=== PATIENT | female | born 1990 | race Caucasian/White ===

== ENCOUNTER 2018-06-04 13:25 | Inpatient (IN) | payer OTHER ==
--- NOTE | 2018-06-04 14:27 | ED ---
General Adult HPI - General Chief complaint: Skin/Abscess/Foreign Body Stated complaint: lt leg infection Time Seen by Provider: 06/04/18 14:08 Source: patient, RN notes reviewed Mode of arrival: wheelchair Limitations: no limitations - History of Present Illness Initial comments: Patient is a 27-year-old female who presents the emergency department with complaints of redness and pain on her left lower extremity that started 2 days ago. She saw her primary doctor yesterday and was given a shot of Rocephin and started on Bactrim; she took 2 doses of the Bactrim. The redness has extended beyond the marked perimeter that her doctor sunil yesterday so she was told to come to the ER. She denies any fevers at home or discharge from the infection. She is unsure what caused the infection. Patient reports that she is up to date on tetanus. She thinks her left foot feels somewhat numb. Patient denies any recent fever, chills, shortness of breath, chest pain, back pain, abdominal pain, vomiting, runny nose, sore throat, tingling, constipation or diarrhea, headaches or visual changes, or any other complaints. - Related Data Home Medications Medication Instructions Recorded Confirmed Mge-Gril-Ndrby Acid 1 tab PO DAILY 08/28/14 10/28/15 [-U Capsule] Omeprazole [PriLOSEC] 20 mg PO AC-BID 06/10/15 10/28/15 Fluticasone Propionate [Flovent 2 puff INHALATION DAILY PRN 10/21/15 10/28/15 Diskus] Previous Rx's Medication Instructions Recorded Acetaminophen-Codeine 300-30mg 1 tab PO Q4H PRN #30 tablet 10/28/15 [Tylenol #3] Allergies Allergy/AdvReac Type Severity Reaction Status Date / Time latex Allergy Rash/Hives Verified 06/04/18 13:47 Review of Systems ROS Statement: Those systems with pertinent positive or pertinent negative responses have been documented in the HPI. ROS Other: All systems not noted in ROS Statement are negative. Past Medical History Past Medical History: Asthma, GERD/Reflux Additional Past Medical History / Comment(s): hard of hearing left ear. History of Any Multi-Drug Resistant Organisms: None Reported Past Surgical History: Bariatric Surgery, Cholecystectomy Additional Past Surgical History / Comment(s): GASTRECTOMY WITH SLEEVE Past Psychological History: Anxiety Smoking Status: Current every day smoker Past Alcohol Use History: Rare Past Drug Use History: None Reported - Past Family History Father Family Medical History: Fibromyalgia General Exam Limitations: no limitations General appearance: alert, in no apparent distress Head exam: Present: atraumatic, normocephalic Eye exam: Present: normal appearance Respiratory exam: Present: normal lung sounds bilaterally Cardiovascular Exam: Present: regular rate, normal rhythm Extremities exam: Present: full ROM, tenderness (Left LE tenderness to palpation.), normal capillary refill, other (Left LE below knee: 11x10 cm area of erythema and warmth. 2x2 cm area of induration. No fluctuance. Tiny scab in the middle without drainage. Full sensation of bilateral feet.) Neurological exam: Present: alert, oriented X3 Psychiatric exam: Present: normal affect, normal mood Course Vital Signs 06/04/18 06/04/18 13:48 17:43 Temperature 98.4 F 97.5 F L Pulse Rate 84 71 Respiratory 16 16 Rate Blood Pressure 111/74 111/57 O2 Sat by Pulse 100 100 Oximetry Medical Decision Making - Medical Decision Making Patient is afebrile here. No fluctuance or drainage over the infection site. This appears to be cellulitis. Venous Plasma Lactic Acid was WNL at 0.7. WBC is WNL at 8.1. Patient will be admitted for IV antibiotics. Case discussed in detail with attending physician Dr. Chavez. - Lab Data Result diagrams: 06/04/18 15:37 06/04/18 15:31 Lab Results 06/04/18 06/04/18 06/04/18 Range/Units 15:31 15:37 15:37 WBC 8.1 (3.8-10.6) k/uL RBC 4.20 (3.80-5.40) m/uL Hgb 10.7 L (11.4-16.0) gm/dL Hct 33.5 L (34.0-46.0) % MCV 79.6 L (80.0-100.0) fL MCH 25.5 (25.0-35.0) pg MCHC 32.0 (31.0-37.0) g/dL RDW 14.7 (11.5-15.5) % Plt Count 319 (150-450) k/uL Neutrophils % 59 % Lymphocytes % 25 % Monocytes % 5 % Eosinophils % 9 % Basophils % 1 % Neutrophils # 4.7 (1.3-7.7) k/uL Lymphocytes # 2.1 (1.0-4.8) k/uL Monocytes # 0.4 (0-1.0) k/uL Eosinophils # 0.8 H (0-0.7) k/uL Basophils # 0.1 (0-0.2) k/uL Sodium 139 (137-145) mmol/L Potassium 4.3 (3.5-5.1) mmol/L Chloride 106 (98-107) mmol/L Carbon Dioxide 24 (22-30) mmol/L Anion Gap 9 mmol/L BUN 16 (7-17) mg/dL Creatinine 0.82 (0.52-1.04) mg/dL Est GFR (CKD-EPI)AfAm >90 (>60 ml/min/1.73 sqM) Est GFR (CKD-EPI)NonAf >90 (>60 ml/min/1.73 sqM) Glucose 114 H (74-99) mg/dL Plasma Lactic Acid Ramsey 0.7 (0.7-2.0) mmol/L Calcium 8.8 (8.4-10.2) mg/dL Total Bilirubin 0.3 (0.2-1.3) mg/dL AST 24 (14-36) U/L ALT 15 (9-52) U/L Alkaline Phosphatase 56 (38-126) U/L Total Protein 7.7 (6.3-8.2) g/dL Albumin 4.0 (3.5-5.0) g/dL Disposition Clinical Impression: Cellulitis, Failure of outpatient treatment Disposition: ADMITTED IP TO THIS HOSP Condition: Good Is patient prescribed a controlled substance at d/c from ED?: No Referrals: Samuel Novoa III, MD [Primary Care Provider] - 1-2 days
[2018-06-04] MEDS ORDERED: ACETAMINOPHEN TAB 500 MG TAB PO STA (14:44)
[2018-06-04 16:27] LABS: Basophils # (A) 0.1 k/uL (0-0.2); Basophils % (A) 1 %; Eosinophils # (A) 0.8 k/uL (0-0.7); Eosinophils % (A) 9 %; HCT 33.5 % (34.0-46.0); HGB 10.7 gm/dL (11.4-16.0); Lymphocytes # (A) 2.1 k/uL (1.0-4.8); Lymphocytes % (A) 25 %; MCH 25.5 pg (25.0-35.0); MCV 79.6 fL (80.0-100.0); Mean Platelet Volume 7.4; Monocytes # (A) 0.4 k/uL (0-1.0); Monocytes % (A) 5 %; Neutrophils # (A) 4.7 k/uL (1.3-7.7); Neutrophils % (A) 59 %; Platelet Count 319 k/uL (150-450); RDW 14.7 % (11.5-15.5); WBC 8.1 k/uL (3.8-10.6)
[2018-06-04] MEDS ORDERED: IBUPROFEN 400 MG TAB PO PRN (17:02)
[2018-06-04] MEDS ORDERED: ACETAMINOPHEN TAB 325 MG TAB PO PRN (17:02)
[2018-06-04] MEDS ORDERED: ONDANSETRON 4 MG/2 ML VIAL IVP PRN (17:02)
[2018-06-04] MEDS ORDERED: NALOXONE 0.4 MG/ML 1 ML VIAL IV PRN (17:02)
[2018-06-04] MEDS ORDERED: VANCOMYCIN IV PER PHARMACY 1 EACH MISC MISCELLANE PRN (17:07)
[2018-06-04] MEDS ORDERED: VANCOMYCIN 1,750 MG in SODIUM CHLORIDE 0.9% 500 ML 500 ML IVPB STA (17:14)
[2018-06-04 17:20] LABS: ALT 15 U/L (9-52); AST 24 U/L (14-36); Alkaline Phosphatase 56 U/L (38-126); Anion Gap 9 mmol/L; Blood Urea Nitrogen 16 mg/dL (7-17); Calcium 8.8 mg/dL (8.4-10.2); Carbon Dioxide 24 mmol/L (22-30); Chloride 106 mmol/L (98-107); Glucose 114 mg/dL (74-99); Potassium 4.3 mmol/L (3.5-5.1); Sodium 139 mmol/L (137-145); Total Bilirubin 0.3 mg/dL (0.2-1.3); Total Protein 7.7 g/dL (6.3-8.2)
[2018-06-04] MEDS: SODIUM CHLORIDE 0.9% 1,000 ML IV SCH (17:37)
[2018-06-04] MEDS ORDERED: SERTRALINE 100 MG TAB PO SCH (21:15)
[2018-06-04] MEDS: FAMOTIDINE 20 MG TAB PO SCH ×2 (21:49→21:50)
[2018-06-04] MEDS: LORATADINE 10 MG TAB PO SCH (21:50)
[2018-06-05] MEDS: VANCOMYCIN 1,250 MG in SODIUM CHLORIDE 0.9% 250 ML IVPB SCH ×2 (01:55→10:19)
[2018-06-05] MEDS: SODIUM CHLORIDE 0.9% 1,000 ML IV SCH ×2 (03:51→14:23)
[2018-06-05 06:39] VITALS: BP 95/45; RESP 16; TEMP 98.7
[2018-06-05] MEDS: LORATADINE 10 MG TAB PO SCH (08:02)
[2018-06-05 08:16] LABS: Basophils # (A) 0.1 k/uL (0-0.2); Basophils % (A) 1 %; Eosinophils # (A) 0.8 k/uL (0-0.7); Eosinophils % (A) 14 %; HCT 29.2 % (34.0-46.0); HGB 9.4 gm/dL (11.4-16.0); Hypochromasia Moderate; Lymphocytes # (A) 1.7 k/uL (1.0-4.8); Lymphocytes % (A) 28 %; MCH 26.1 pg (25.0-35.0); MCHC 32.2 g/dL (31.0-37.0); MCV 81.1 fL (80.0-100.0); Mean Platelet Volume 7.3; Monocytes # (A) 0.3 k/uL (0-1.0); Monocytes % (A) 6 %; Neutrophils % (A) 50 %; Platelet Count 263 k/uL (150-450); RDW 14.7 % (11.5-15.5)
[2018-06-05 08:35] LABS: ALT 13 U/L (9-52); AST 18 U/L (14-36); Albumin 3.1 g/dL (3.5-5.0); Alkaline Phosphatase 46 U/L (38-126); Anion Gap 5 mmol/L; Blood Urea Nitrogen 12 mg/dL (7-17); Calcium 8.2 mg/dL (8.4-10.2); Carbon Dioxide 26 mmol/L (22-30); Chloride 110 mmol/L (98-107); Glucose 89 mg/dL (74-99); Potassium 4.5 mmol/L (3.5-5.1); Sodium 141 mmol/L (137-145); Total Bilirubin 0.2 mg/dL (0.2-1.3); Total Protein 6.3 g/dL (6.3-8.2)
[2018-06-05 09:21] VITALS: PULSE 98
--- NOTE | 2018-06-05 14:32 | P.HPIM ---
History of Present Illness 27-year-old present female came in because of redness pain tenderness in the left just below knee cellulitis with significant improved today. Patient has seen the primary doctor as an outpatient and was prescribed Bactrim but patient only take 2 pills since the facility's is worsening K patient came to ER was subsequently admitted because of failed outpatient therapy. Patient was given vancomycin with significant improvement. I did not appreciate any lymphadenopathy the popliteal area. Patient denied any fever chills. Patient is feeling much better wanted to go home. We will add Keflex to her Bactrim to cover strep infection as well apart from MRSA and will be discharged to see Dr. Novoa as an outpatient. Review of Systems REVIEW OF SYSTEMS: CONSTITUTIONAL: No fever, no malaise, no fatigue. HEENT: No recent visual problems or hearing problems. Denied any sore throat. CARDIOVASCULAR: No chest pain, orthopnea, PND, no palpitations, no syncope. PULMONARY: No shortness of breath, no cough, no hemoptysis. GASTROINTESTINAL: No diarrhea, no nausea, no vomiting, no abdominal pain. Normoactive bowel sounds. NEUROLOGICAL: No headaches, no weakness, no numbness. HEMATOLOGICAL: Denies any bleeding or petechiae. GENITOURINARY: Denies any burning micturition, frequency, or urgency. MUSCULOSKELETAL/RHEUMATOLOGICAL: Denies any joint pain, swelling, or any muscle pain. ENDOCRINE: Denies any polyuria or polydipsia. The rest of the 14-point review of systems is negative. Past Medical History Past Medical History: Asthma, GERD/Reflux Additional Past Medical History / Comment(s): ruptured lt ear drum from being hit in head by ball/[place] lt ear, ibs, migraines, hiatal hernia,"fatty liver" History of Any Multi-Drug Resistant Organisms: None Reported Past Surgical History: Bariatric Surgery, Cholecystectomy Additional Past Surgical History / Comment(s): GASTRECTOMY WITH SLEEVE, egd/ colonoscopy Past Anesthesia/Blood Transfusion Reactions: Motion Sickness Smoking Status: Current every day smoker - Past Family History Mother Additional Family Medical History / Comment(s): murmur, papitations, anxiety, depression Father Family Medical History: Fibromyalgia Additional Family Medical History / Comment(s): gout, depression, past drug use Medications and Allergies Home Medications Medication Instructions Recorded Confirmed Type Cetirizine HCl [Zyrtec] 10 mg PO DAILY 06/04/18 06/04/18 History Ranitidine HCl 150 mg PO BID 06/04/18 06/04/18 History Sertraline [Zoloft] 100 mg PO HS 06/04/18 06/04/18 History Sulfamethox-Tmp 800-160Mg [Bactrim 1 tab PO Q12HR 06/04/18 06/04/18 History DS 800-160 mg] Cephalexin [Keflex] 500 mg PO Q8HR #20 cap 06/05/18 Rx Allergies Allergy/AdvReac Type Severity Reaction Status Date / Time latex Allergy Rash/Hives Verified 06/04/18 18:06 Physical Exam Vitals: Vital Signs Temp Pulse Pulse Resp BP BP Pulse Ox 06/05/18 09:14 98 16 06/05/18 06:38 98.7 F 69 16 95/45 98 06/04/18 23:00 96.8 F L 76 18 107/55 97 06/04/18 20:00 98.0 F 74 18 110/61 99 06/04/18 17:43 97.5 F L 71 16 111/57 100 Intake and Output 06/04/18 06/05/18 06/05/18 22:59 06:59 14:59 Intake Total 750 1550 Balance 750 1550 Intake: Intake, IV Titration 750 1550 Amount Sodium Chloride 0.9% 1, 500 800 000 ml @ 100 mls/hr IV . Q10H [facility] Rx#:[id number] Vancomycin 1,250 mg In 250 250 Sodium Chloride 0.9% 250 ml @ 125 mls/hr IVPB Q8H [facility] Rx#:[id number] Vancomycin 1,750 mg In 500 Sodium Chloride 0.9% 500 ml 500 ml @ 167 mls/hr IVPB ONCE [facility] Rx#: [id number] Other: Voiding Method Toilet Weight 101.5 kg PHYSICAL EXAMINATION: GENERAL: The patient is alert and oriented x3, not in any acute distress. Well developed, well nourished. HEENT: Pupils are round and equally reacting to light. EOMI. No scleral icterus. No conjunctival pallor. Normocephalic, atraumatic. No pharyngeal erythema. No thyromegaly. CARDIOVASCULAR: S1 and S2 present. No murmurs, rubs, or gallops. PULMONARY: Chest is clear to auscultation, no wheezing or crackles. ABDOMEN: Soft, nontender, nondistended, normoactive bowel sounds. No palpable organomegaly. MUSCULOSKELETAL: No joint swelling or deformity. EXTREMITIES: No cyanosis, clubbing, or pedal edema. NEUROLOGICAL: Gross neurological examination did not reveal any focal deficits. SKIN: Cellulitis and redness just below the left knee area significant improvement mild local is of temperature no tenderness Results CBC & Chem 7: 06/05/18 07:38 06/05/18 07:38 Labs: Abnormal Lab Results - Last 24 Hours (Table) 06/04/18 06/04/18 06/05/18 Range/Units 15:31 15:37 07:38 RBC 3.60 L (3.80-5.40) m/uL Hgb 10.7 L 9.4 L (11.4-16.0) gm/dL Hct 33.5 L 29.2 L (34.0-46.0) % MCV 79.6 L (80.0-100.0) fL Eosinophils # 0.8 H 0.8 H (0-0.7) k/uL Chloride (98-107) mmol/L Glucose 114 H (74-99) mg/dL Calcium (8.4-10.2) mg/dL Albumin (3.5-5.0) g/dL 06/05/18 Range/Units 07:38 RBC (3.80-5.40) m/uL Hgb (11.4-16.0) gm/dL Hct (34.0-46.0) % MCV (80.0-100.0) fL Eosinophils # (0-0.7) k/uL Chloride 110 H (98-107) mmol/L Glucose (74-99) mg/dL Calcium 8.2 L (8.4-10.2) mg/dL Albumin 3.1 L (3.5-5.0) g/dL Thrombosis Risk Factor Assmnt - Choose All That Apply Any of the Below Risk Factors Present?: No Other Risk Factors: No Other congenital or acquired thrombophilia - If yes, enter type in comment: No Thrombosis Risk Factor Assessment Level: Very Low Risk Assessment and Plan Plan: Cellulitis with failed outpatient therapy of the left lower extremity: Improved with IV vancomycin patient will be discharged with Bactrim and Keflex for about a week. -Gastroesophageal reflux disease -Asthma without any acute exacerbation -Nicotine abuse : Counseling was provided For above-mentioned chronic medical problems patient will continue her home medications
--- NOTE | 2018-06-05 14:34 | P.DS ---
Providers Date of admission: 06/04/18 18:11 Attending physician: Tulio Augustine Primary care physician: Samuel Novoa [facility] Course: Please refer to my HPI Patient Condition at Discharge: Good Plan - Discharge Summary Discharge Rx Participant: No New Discharge Prescriptions: New Cephalexin [Keflex] 500 mg PO Q8HR #20 cap No Action Sulfamethox-Tmp 800-160Mg [Bactrim DS 800-160 mg] 1 tab PO Q12HR Sertraline [Zoloft] 100 mg PO HS Ranitidine HCl 150 mg PO BID Cetirizine HCl [Zyrtec] 10 mg PO DAILY Discharge Medication List Cetirizine HCl [Zyrtec] 10 mg PO DAILY 06/04/18 [History] Ranitidine HCl 150 mg PO BID 06/04/18 [History] Sertraline [Zoloft] 100 mg PO HS 06/04/18 [History] Sulfamethox-Tmp 800-160Mg [Bactrim DS 800-160 mg] 1 tab PO Q12HR 06/04/18 [ History] Cephalexin [Keflex] 500 mg PO Q8HR #20 cap 06/05/18 [Rx] Follow up Appointment(s)/Referral(s): Samuel Novoa III, MD [Primary Care Provider] - 06/09/18 3:30 pm Patient Instructions/Handouts: Cellulitis (DC) Activity/Diet/Wound Care/Special Instructions: activity as tolerated Discharge Disposition: HOME SELF-CARE
[2018-06-05] MEDS ORDERED: VANCOMYCIN TROUGH DUE 1 EACH MISC MISCELLANE ONE (17:00)
== END 2018-06-05 14:22 | disposition home or self-care (01) | DRG 603 ==
LOC: EC 13:25 → 4MS4W 18:11
PROVIDERS: ADMIT Internal Medicine; ATTEND Internal Medicine
DX: L03.116 Cellulitis of left lower limb (principal); F17.200 Nicotine dependence, unspecified, uncomplicated; H91.92 Unspecified hearing loss, left ear; J45.909 Unspecified asthma, uncomplicated; K21.9 Gastro-esophageal reflux disease without esophagitis; K58.9 Irritable bowel syndrome, unspecified; K76.0 Fatty (change of) liver, not elsewhere classified; Z79.51 Long term (current) use of inhaled steroids; Z81.8 Family history of other mental and behavioral disorders; Z71.6 Tobacco abuse counseling; Z91.040 Latex allergy status
CPT/HCPCS: 36415; 80053; 83605; 85025; 87040; 96365; 96366; 99284

== ENCOUNTER 2018-12-30 19:24 | Emergency (ER) | payer OTHER ==
[2018-12-30 19:53] VITALS: BP 125/83; PULSE 75; RESP 18; TEMP 98.2
[2018-12-30] MEDS ORDERED: ONDANSETRON ODT 4 MG TAB PO STA (20:55)
--- NOTE | 2018-12-30 21:47 | ED ---
General Adult HPI - General Chief complaint: Head Injury Stated complaint: hit head/nausea Time Seen by Provider: 12/30/18 20:19 Source: patient Mode of arrival: ambulatory Limitations: no limitations - History of Present Illness Initial comments: Patient is a 28-year-old female presents emergency Department with a headache. Patient reports tripping over a toy and falling forward with trauma to the left frontal region. Parents report the incident happened 2 days ago and the throbbing still persists. Patient reports yesterday she developed nausea with one episode of vomiting. Patient also reports light sensitivity. Patient reports a history of migraines and states the pain is currently similar to her migraine except she reports throbbing at the site of trauma. Patient denies taking any medication to alleviate the pain. Patient denies blurry vision, lightheadedness, dizziness, gait instability, muscle weakness, chest pain, shortness of breath or chest tightness. - Related Data Home Medications Medication Instructions Recorded Confirmed Cetirizine HCl [Zyrtec] 10 mg PO DAILY 06/04/18 06/04/18 Ranitidine HCl 150 mg PO BID 06/04/18 06/04/18 Sertraline [Zoloft] 100 mg PO HS 06/04/18 06/04/18 Sulfamethox-Tmp 800-160Mg [Bactrim 1 tab PO Q12HR 06/04/18 06/04/18 DS 800-160 mg] Previous Rx's Medication Instructions Recorded Cephalexin [Keflex] 500 mg PO Q8HR #20 cap 06/05/18 Ondansetron Odt [Zofran Odt] 4 mg PO Q8HR PRN #10 tab 12/30/18 Allergies Allergy/AdvReac Type Severity Reaction Status Date / Time latex Allergy Rash/Hives Verified 12/30/18 19:53 Review of Systems ROS Statement: Those systems with pertinent positive or pertinent negative responses have been documented in the HPI. ROS Other: All systems not noted in ROS Statement are negative. Past Medical History Past Medical History: Asthma, GERD/Reflux Additional Past Medical History / Comment(s): ruptured lt ear drum from being hit in head by ball/[place] lt ear, ibs, migraines, hiatal hernia,"fatty liver" History of Any Multi-Drug Resistant Organisms: None Reported Past Surgical History: Bariatric Surgery, Cholecystectomy Additional Past Surgical History / Comment(s): GASTRECTOMY WITH SLEEVE, egd/colonoscopy Past Anesthesia/Blood Transfusion Reactions: Motion Sickness Past Psychological History: Anxiety, Depression Smoking Status: Current every day smoker Past Alcohol Use History: Rare Past Drug Use History: None Reported - Past Family History Mother Additional Family Medical History / Comment(s): murmur, papitations, anxiety, depression Father Family Medical History: Fibromyalgia Additional Family Medical History / Comment(s): gout, depression, past drug use General Exam - General Exam Comments Initial Comments: General: Well-developed well-nourished distress Head: Mild hematoma on the left frontal region; no abrasion, ecchymosis or laceration. HEENT: Normocephalic/atraumatic, PERLL, pharynx erythema, swallowing well, EAC no erythema, no exudates, TM clear, no cervical lymph nodes Neck: Supple, nontender, trachea midline Chest/Lungs: Normal respirations, no signs of respiratory distress clear to auscultation bilaterally no wheezes, rales, rhonchi Cardiac: Regular rate and rhythm, normal S1-S2, no murmurs rubs or gallops Abdomen/GI: Soft nontender, bowel sounds equal or quadrant x4, no guarding, no rebound no CVA tenderness : Deferred Musculoskeletal: Nontender, full range of motion, no edema, strength equal bilaterally Skin: Warmth, no rashes or lesions, no cyanosis or diaphoresis Neurologic: AAO x 3, CN 2-12 intact, Psychiatric: Mood and affect normal, judgment normal Limitations: no limitations General appearance: alert, in no apparent distress ENT exam: Present: normal exam Course Vital Signs 12/30/18 19:49 Temperature 98.2 F Pulse Rate 75 Respiratory 18 Rate Blood Pressure 125/83 O2 Sat by Pulse 99 Oximetry Medical Decision Making - Medical Decision Making Patient is a 28-year-old female presenting to emergency Department with a headache. Distal physical examination I don't suspect acute intracranial pathology. Sure decision making was discussed with patient regarding CAT scan to rule out acute pathology. Patient decided not to have any imaging performed. Patient advised to follow-up with primary care. Patient was prescribed Strict return parameters were discussed with patient thoroughly. Patient advised to follow-up with primary care. Patient advised to return to emergency department if symptoms worsen. Case discussed with physician. Disposition Clinical Impression: Headache Disposition: HOME SELF-CARE Condition: Stable Instructions (If sedation given, give patient instructions): Migraine Headache (ED) Prescriptions: Ondansetron Odt [Zofran Odt] 4 mg PO Q8HR PRN #10 tab PRN Reason: Nausea Is patient prescribed a controlled substance at d/c from ED?: No Referrals: Samuel Novoa III, MD [Primary Care Provider] - 1-2 days Time of Disposition: 19:50
== END 2018-12-30 21:07 | disposition home or self-care (01) ==
LOC: SUPCPDRO 19:24 → EC 19:24
DX: R51 Headache (principal); S00.83XA Contusion of other part of head, initial encounter; R11.2 Nausea with vomiting, unspecified; F32.9 Major depressive disorder, single episode, unspecified; F41.9 Anxiety disorder, unspecified; K21.9 Gastro-esophageal reflux disease without esophagitis; F17.200 Nicotine dependence, unspecified, uncomplicated; Z91.040 Latex allergy status; Z79.899 Other long term (current) drug therapy; Z86.69 Personal history of other diseases of the nervous system and sense organs; Z98.84 Bariatric surgery status; Z90.49 Acquired absence of other specified parts of digestive tract; Z53.29 Procedure and treatment not carried out because of patient's decision for other reasons; W18.09XA Striking against other object with subsequent fall, initial encounter
CPT/HCPCS: 99283

== ENCOUNTER → 2020-06-30 | Outpatient (CLI) | payer OTHER ==
--- NOTE | 2020-07-01 07:20 | US ---
EXAMINATION TYPE: US pelvis complete transvag DATE OF EXAM: 06/30/2020 COMPARISON: CT 2014 CLINICAL HISTORY: N93.8 Other specified uterine/vaginal bleeding. Pain and heavy menses TECHNIQUE: Transvaginal (TV) and Transabdominal (TA) EXAM MEASUREMENTS: Uterus: 9.9 x 4.2 x 6.3 cm Endometrial Stripe: .8 cm Right Ovary: 2.3 x 1.6 x 1.4 cm Left Ovary: 2.9 x 2.0 x 2.2 cm 1. Uterus: Anteverted wnl 2. Endometrium: wnl 3. Right Ovary: wnl 4. Left Ovary: Cystic area seen 1.9 x 1.4 x 1.4cm. 5. Bilateral Adnexa: wnl 6. Posterior cul-de-sac: wnl Technologist boyce 1.9 cm prominent follicle left ovary or simple small ovarian cyst. IMPRESSION: No significant abnormality.
== END | disposition home or self-care (01) ==
LOC: RADUSWWP 15:45
PROVIDERS: ATTEND Family Medicine
DX: N93.8 Other specified abnormal uterine and vaginal bleeding (principal)
CPT/HCPCS: 76830; 76856

== ENCOUNTER 2020-10-27 11:42 | Emergency (ER) | payer OTHER ==
[2020-10-27] MEDS ORDERED: PANTOPRAZOLE 40 MG/10 ML VIAL IVP STA (11:51)
[2020-10-27 11:53] VITALS: BP 128/80; PULSE 76; RESP 12; TEMP 98.2
--- NOTE | 2020-10-27 11:53 | ED ---
General Adult HPI - General Source: patient, RN notes reviewed Mode of arrival: ambulatory Limitations: no limitations <Rojas Degroot - Last Filed: 10/27/20 11:50> <Jean Briscoe - Last Filed: 10/28/20 11:22> - General Stated complaint: Dizziness, vomiting Time Seen by Provider: 10/27/20 11:49 - History of Present Illness Initial comments: This a 30-year-old female presents emergency Department chief complaint of lightheadedness, dizziness, black emesis and stool. Patient states that she started not feeling well. Very dizzy and nauseated yesterday. Patient states she had "jet black" emesis and also had an episode of stool today that was similar color. No history of ulcers or GI bleeds. Patient does have history of GERD on multiple medications. Denies any blood thinners. No dysuria no hematuria. patiently gastric sleeve surgery in 2010 in [place]. No Motrin, Aleve or aspirin use (Rojas Degroot) 30-year-old female presents emergency Department with chief complaint of black vomit and stool. Patient reports this occurred earlier today when she began feeling lightheaded while folding her laundry and then had a vomiting episode of black emesis. Patient also reports developing "very dark brown" stool after the vomiting episode. Patient denies any abdominal pain does report some vague back pain but she does have history of chronic back pain. She denies any chest pain or shortness of breath. No history of alcohol abuse. Does have history of GERD and gastric sleeve in 2010. No NSAID use. No history of GI bleeds. No anticoagulation. Denies any headaches, gait instability, blurry vision, once the weakness appears to use at this time. (Jean Briscoe) - Related Data Home Medications Medication Instructions Recorded Confirmed Cetirizine HCl [Zyrtec] 10 mg PO DAILY 06/04/18 10/27/20 Famotidine 20 mg PO BID 10/27/20 10/27/20 L.acidoph,Paracasei, B.lactis 1 cap PO HS 10/27/20 10/27/20 [Probiotic] Multivitamins, Thera [Multivitamin 1 tab PO DAILY 10/27/20 10/27/20 (formulary)] Venlafaxine HCl [Effexor XR] 75 mg PO HS 10/27/20 10/27/20 Allergies Allergy/AdvReac Type Severity Reaction Status Date / Time latex Allergy Rash/Hives Verified 10/27/20 14:07 Review of Systems ROS Other: All systems not noted in ROS Statement are negative. <Rojas Degroot - Last Filed: 10/27/20 11:50> ROS Other: All systems not noted in ROS Statement are negative. <Jean Briscoe - Last Filed: 10/28/20 11:22> ROS Statement: Those systems with pertinent positive or pertinent negative responses have been documented in the HPI. Past Medical History Past Medical History: Asthma, GERD/Reflux Additional Past Medical History / Comment(s): ruptured lt ear drum from being hit in head by ball/[place] lt ear, ibs, migraines, hiatal hernia,"fatty liver" History of Any Multi-Drug Resistant Organisms: None Reported Past Surgical History: Bariatric Surgery, Cholecystectomy Additional Past Surgical History / Comment(s): GASTRECTOMY WITH SLEEVE, egd/colonoscopy Past Anesthesia/Blood Transfusion Reactions: Motion Sickness Past Psychological History: Anxiety, Depression Past Alcohol Use History: Rare Past Drug Use History: None Reported - Past Family History Mother Additional Family Medical History / Comment(s): murmur, papitations, anxiety, depression Father Family Medical History: Fibromyalgia Additional Family Medical History / Comment(s): gout, depression, past drug use <Rojas Degroot - Last Filed: 10/27/20 11:50> General Exam Limitations: no limitations General appearance: alert, in no apparent distress, obese Head exam: Present: atraumatic, normocephalic, normal inspection Eye exam: Present: normal appearance, PERRL, EOMI Pupils: Present: normal accommodation ENT exam: Present: normal exam, normal oropharynx, mucous membranes moist Neck exam: Present: normal inspection, full ROM. Absent: tenderness Respiratory exam: Present: normal lung sounds bilaterally. Absent: respiratory distress Cardiovascular Exam: Present: regular rate, normal rhythm, normal heart sounds Extremities exam: Present: normal inspection, full ROM, normal capillary refill. Absent: tenderness, pedal edema, joint swelling Back exam: Present: normal inspection, full ROM, tenderness, CVA tenderness (R) (Mild). Absent: CVA tenderness (L) Neurological exam: Present: alert, oriented X3, normal gait Psychiatric exam: Present: normal affect, normal mood Skin exam: Present: warm, dry, intact, normal color <Jean Briscoe - Last Filed: 10/28/20 11:22> Course Vital Signs 10/27/20 10/27/20 11:50 16:40 Temperature 98.2 F 98.2 F Pulse Rate 76 76 Respiratory 12 12 Rate Blood Pressure 128/80 128/80 O2 Sat by Pulse 100 100 Oximetry EKG Findings - EKG Comments: EKG Findings:: Sinus rhythm and no ST or T-wave changes. Ventricular rate 65, MS 116, QRS 70, QTC 413. <Jean Briscoe - Last Filed: 10/28/20 11:22> Medical Decision Making - Lab Data Result diagrams: 10/27/20 15:17 10/27/20 15:17 <Jean Briscoe - Last Filed: 10/28/20 11:22> - Medical Decision Making 30-year-old female presents to the emergency department with a chief complaint of lack stool or vomit. On physical examination, patient is resting comfortably and playing on her phone. She does not appear to be in any distress whatsoever. Patient was given IV fluids, Protonix and antiemetics. CBC reveals a hemoglobin of 10.6, however this appears to be her baseline. CMP unremarkable. Occult stool is negative. No and unremarkable UA. CMP unremarkable. Nontender abdomen. On reevaluation, patient reports no symptoms. She will be discharged with outpatient follow-up. Return parameters discussed the patient was understanding and agreeable. Case discussed with Dr. Ortiz. (Jean Briscoe) - Lab Data Lab Results 10/27/20 10/27/20 10/27/20 Range/Units 15:15 15:17 15:17 WBC 7.6 (3.8-10.6) k/uL RBC 4.10 (3.80-5.40) m/uL Hgb 10.7 L (11.4-16.0) gm/dL Hct 31.9 L (34.0-46.0) % MCV 77.7 L (80.0-100.0) fL MCH 26.1 (25.0-35.0) pg MCHC 33.6 (31.0-37.0) g/dL RDW 15.6 H (11.5-15.5) % Plt Count 338 (150-450) k/uL MPV 7.6 Neutrophils % 62 % Lymphocytes % 25 % Monocytes % 5 % Eosinophils % 6 % Basophils % 1 % Neutrophils # 4.7 (1.3-7.7) k/uL Lymphocytes # 1.9 (1.0-4.8) k/uL Monocytes # 0.4 (0-1.0) k/uL Eosinophils # 0.5 (0-0.7) k/uL Basophils # 0.1 (0-0.2) k/uL Microcytosis Slight APTT 26.2 (22.0-30.0) sec Sodium (137-145) mmol/L Potassium (3.5-5.1) mmol/L Chloride (98-107) mmol/L Carbon Dioxide (22-30) mmol/L Anion Gap mmol/L BUN (7-17) mg/dL Creatinine (0.52-1.04) mg/dL Est GFR (CKD-EPI)AfAm (>60 ml/min/1.73 sqM) Est GFR (CKD-EPI)NonAf (>60 ml/min/1.73 sqM) Glucose (74-99) mg/dL Plasma Lactic Acid Ramsey (0.7-2.0) mmol/L Calcium (8.4-10.2) mg/dL Total Bilirubin (0.2-1.3) mg/dL AST (14-36) U/L ALT (4-34) U/L Alkaline Phosphatase (38-126) U/L Total Protein (6.3-8.2) g/dL Albumin (3.5-5.0) g/dL Amylase (30-110) U/L Lipase (23-300) U/L Urine Color Urine Appearance (Clear) Urine pH (5.0-8.0) Ur Specific [place] (1.001-1.035) Urine Protein (Negative) Urine Glucose (UA) (Negative) Urine Ketones (Negative) Urine Blood (Negative) Urine Nitrite (Negative) Urine Bilirubin (Negative) Urine Urobilinogen (<2.0) mg/dL Ur Leukocyte Esterase (Negative) Urine HCG, Qual (Not Detectd) Stool Occult Blood (Negative) Blood Type O Positive Blood Type Recheck O Pos Bld Type Recheck Status No Antibody Screen NEGATIVE Spec Expiration Date 10/30/2020 - 231410/27/20 10/27/20 10/27/20 Range/Units 15:17 15:17 15:17 WBC (3.8-10.6) k/uL RBC (3.80-5.40) m/uL Hgb (11.4-16.0) gm/dL Hct (34.0-46.0) % MCV (80.0-100.0) fL MCH (25.0-35.0) pg MCHC (31.0-37.0) g/dL RDW (11.5-15.5) % Plt Count (150-450) k/uL MPV Neutrophils % % Lymphocytes % % Monocytes % % Eosinophils % % Basophils % % Neutrophils # (1.3-7.7) k/uL Lymphocytes # (1.0-4.8) k/uL Monocytes # (0-1.0) k/uL Eosinophils # (0-0.7) k/uL Basophils # (0-0.2) k/uL Microcytosis APTT (22.0-30.0) sec Sodium 137 (137-145) mmol/L Potassium 4.4 (3.5-5.1) mmol/L Chloride 104 (98-107) mmol/L Carbon Dioxide 26 (22-30) mmol/L Anion Gap 7 mmol/L BUN 12 (7-17) mg/dL Creatinine 0.78 (0.52-1.04) mg/dL Est GFR (CKD-EPI)AfAm >90 (>60 ml/min/1.73 sqM) Est GFR (CKD-EPI)NonAf >90 (>60 ml/min/1.73 sqM) Glucose 94 (74-99) mg/dL Plasma Lactic Acid Ramsey (0.7-2.0) mmol/L Calcium 8.8 (8.4-10.2) mg/dL Total Bilirubin 0.3 (0.2-1.3) mg/dL AST 23 (14-36) U/L ALT 11 (4-34) U/L Alkaline Phosphatase 77 (38-126) U/L Total Protein 7.4 (6.3-8.2) g/dL Albumin 4.1 (3.5-5.0) g/dL Amylase 45 (30-110) U/L Lipase 82 (23-300) U/L Urine Color Yellow Urine Appearance Clear (Clear) Urine pH 7.0 (5.0-8.0) Ur Specific [place] 1.016 (1.001-1.035) Urine Protein Negative (Negative) Urine Glucose (UA) Negative (Negative) Urine Ketones Negative (Negative) Urine Blood Negative (Negative) Urine Nitrite Negative (Negative) Urine Bilirubin Negative (Negative) Urine Urobilinogen <2.0 (<2.0) mg/dL Ur Leukocyte Esterase Negative (Negative) Urine HCG, Qual Not Detected (Not Detectd) Stool Occult Blood (Negative) Blood Type Blood Type Recheck Bld Type Recheck Status Antibody Screen Spec Expiration Date 10/27/20 10/27/20 Range/Units 15:17 15:44 WBC (3.8-10.6) k/uL RBC (3.80-5.40) m/uL Hgb (11.4-16.0) gm/dL Hct (34.0-46.0) % MCV (80.0-100.0) fL MCH (25.0-35.0) pg MCHC (31.0-37.0) g/dL RDW (11.5-15.5) % Plt Count (150-450) k/uL MPV Neutrophils % % Lymphocytes % % Monocytes % % Eosinophils % % Basophils % % Neutrophils # (1.3-7.7) k/uL Lymphocytes # (1.0-4.8) k/uL Monocytes # (0-1.0) k/uL Eosinophils # (0-0.7) k/uL Basophils # (0-0.2) k/uL Microcytosis APTT (22.0-30.0) sec Sodium (137-145) mmol/L Potassium (3.5-5.1) mmol/L Chloride (98-107) mmol/L Carbon Dioxide (22-30) mmol/L Anion Gap mmol/L BUN (7-17) mg/dL Creatinine (0.52-1.04) mg/dL Est GFR (CKD-EPI)AfAm (>60 ml/min/1.73 sqM) Est GFR (CKD-EPI)NonAf (>60 ml/min/1.73 sqM) Glucose (74-99) mg/dL Plasma Lactic Acid Ramsey 0.9 (0.7-2.0) mmol/L Calcium (8.4-10.2) mg/dL Total Bilirubin (0.2-1.3) mg/dL AST (14-36) U/L ALT (4-34) U/L Alkaline Phosphatase (38-126) U/L Total Protein (6.3-8.2) g/dL Albumin (3.5-5.0) g/dL Amylase (30-110) U/L Lipase (23-300) U/L Urine Color Urine Appearance (Clear) Urine pH (5.0-8.0) Ur Specific [place] (1.001-1.035) Urine Protein (Negative) Urine Glucose (UA) (Negative) Urine Ketones (Negative) Urine Blood (Negative) Urine Nitrite (Negative) Urine Bilirubin (Negative) Urine Urobilinogen (<2.0) mg/dL Ur Leukocyte Esterase (Negative) Urine HCG, Qual (Not Detectd) Stool Occult Blood Negative (Negative) Blood Type Blood Type Recheck Bld Type Recheck Status Antibody Screen Spec Expiration Date Disposition <Rojas Degroot - Last Filed: 10/27/20 11:50> Is patient prescribed a controlled substance at d/c from ED?: No Time of Disposition: 16:18 <Jean Briscoe - Last Filed: 10/28/20 11:22> Clinical Impression: Melena, Anemia Disposition: HOME SELF-CARE Condition: Stable Instructions (If sedation given, give patient instructions): Gastrointestinal Bleeding (ED) Additional Instructions: Follow-up with the primary care physician. Return to emergency department if symptoms worsen. Referrals: Aviva Reyes MD [Primary Care Provider] - 1-2 days
[2020-10-27 15:31] LABS: Basophils # (A) 0.1 k/uL (0-0.2); Basophils % (A) 1 %; Eosinophils # (A) 0.5 k/uL (0-0.7); Eosinophils % (A) 6 %; HCT 31.9 % (34.0-46.0); HGB 10.7 gm/dL (11.4-16.0); Lymphocytes # (A) 1.9 k/uL (1.0-4.8); Lymphocytes % (A) 25 %; MCH 26.1 pg (25.0-35.0); MCHC 33.6 g/dL (31.0-37.0); MCV 77.7 fL (80.0-100.0); Mean Platelet Volume 7.6; Microcytosis Slight; Monocytes # (A) 0.4 k/uL (0-1.0); Monocytes % (A) 5 %; Neutrophils # (A) 4.7 k/uL (1.3-7.7); Neutrophils % (A) 62 %; Platelet Count 338 k/uL (150-450); RDW 15.6 % (11.5-15.5); WBC 7.6 k/uL (3.8-10.6)
[2020-10-27 15:32] LABS: Appearance,Urine Clear (Clear); Bilirubin,Urine Negative (Negative); Blood,Urine Negative (Negative); Color,Urine Yellow; Glucose,Urine (UA) Negative (Negative); Ketones,Urine Negative (Negative); Leukocyte Esterase,Urine Negative (Negative); Nitrite,Urine Negative (Negative); Protein,Urine Negative (Negative); Specific Gravity,Urine 1.016 (1.001-1.035); Urobilinogen,Urine <2.0 mg/dL (<2.0)
[2020-10-27 15:57] LABS: ALT 11 U/L (4-34); AST 23 U/L (14-36); African American GFR (CKD) >90 (>60 ml/min/1.73 sqM); Albumin 4.1 g/dL (3.5-5.0); Alkaline Phosphatase 77 U/L (38-126); Amylase 45 U/L (30-110); Anion Gap 7 mmol/L; Blood Urea Nitrogen 12 mg/dL (7-17); Calcium 8.8 mg/dL (8.4-10.2); Carbon Dioxide 26 mmol/L (22-30); Chloride 104 mmol/L (98-107); Glucose 94 mg/dL (74-99); Lipase 82 U/L (23-300); Non-African American GFR(CKD) >90 (>60 ml/min/1.73 sqM); Potassium 4.4 mmol/L (3.5-5.1); Sodium 137 mmol/L (137-145); Total Bilirubin 0.3 mg/dL (0.2-1.3); Total Protein 7.4 g/dL (6.3-8.2)
== END 2020-10-27 17:00 | disposition home or self-care (01) ==
LOC: EC 11:42
DX: K92.1 Melena (principal); D64.9 Anemia, unspecified; J45.909 Unspecified asthma, uncomplicated; K21.9 Gastro-esophageal reflux disease without esophagitis; F41.9 Anxiety disorder, unspecified; F32.9 Major depressive disorder, single episode, unspecified
CPT/HCPCS: 36415; 93005; 86900; 86901; 80053; 82150; 83605; 83690; 85025; 85730; 86850; 82272; 81003; 81025; 99284; 96374; C9113

== ENCOUNTER 2020-12-13 15:10 | Emergency (ER) | payer OTHER ==
[2020-12-13 16:06] LABS: Appearance,Urine Clear (Clear); Bilirubin,Urine Negative (Negative); Blood,Urine Trace (Negative); Color,Urine Yellow; Glucose,Urine (UA) Negative (Negative); Ketones,Urine Trace (Negative); Leukocyte Esterase,Urine Negative (Negative); Mucus,Urine Rare /hpf; Nitrite,Urine Negative (Negative); Protein,Urine Negative (Negative); RBC,Urine 3 /hpf (0-5); Specific Gravity,Urine 1.021 (1.001-1.035); Urobilinogen,Urine <2.0 mg/dL (<2.0); WBC,Urine 1 /hpf (0-5)
[2020-12-13] MEDS ORDERED: KETOROLAC 15 MG/ML 1 ML VIAL IM STA (16:21)
[2020-12-13] MEDS ORDERED: ACETAMINOPHEN TAB 325 MG TAB PO STA (16:22)
--- NOTE | 2020-12-13 16:29 | ED ---
Fever HPI - General Chief Complaint: Fever Stated Complaint: Back pain,Numb arms,Fever Time Seen by Provider: 12/13/20 15:29 Source: patient, RN notes reviewed Mode of arrival: ambulatory Limitations: no limitations - History of Present Illness Initial Comments: Well-appearing, well-nourished, pleasant 30-year-old white female presents to the emergency room with complaints of sudden onset of fever and chills with low back pain that started at 2:30 today. Patient denies alcohol use or drug use, states does smoke 10 cigarettes a day. Patient states history of asthma, GERD, bariatric surgery over 10 years ago and a cholecystectomy. Patient denies any nausea vomiting or diarrhea, denies cough, denies dysuria. Patient denies pelvic pain, states had tubal, no chance of . States takes Effexor for anxiety and multivitamin. Patient states was able to eat this morning but has not had anything to eat since she started feeling bad. Temperature 100.9 in the emergency room with a heart rate of 135. MD Complaint: fever, malaise -: hour(s) (1430 today) Temperature Source: oral Associated Symptoms: chills, other (Body aches and low back pain) Treatments Prior to Arrival: none - Related Data Home Medications Medication Instructions Recorded Confirmed Cetirizine HCl [Zyrtec] 10 mg PO DAILY 06/04/18 12/13/20 Famotidine 20 mg PO BID 10/27/20 12/13/20 L.acidoph,Paracasei, B.lactis 1 cap PO HS 10/27/20 12/13/20 [Probiotic] Multivitamins, Thera [Multivitamin 1 tab PO DAILY 10/27/20 12/13/20 (formulary)] Venlafaxine HCl [Effexor XR] 75 mg PO HS 10/27/20 12/13/20 Rizatriptan Benzoate [Maxalt] 10 mg PO DAILY PRN 12/13/20 12/13/20 Allergies Allergy/AdvReac Type Severity Reaction Status Date / Time latex Allergy Rash/Hives Verified 12/13/20 16:10 Review of Systems ROS Statement: Those systems with pertinent positive or pertinent negative responses have been documented in the HPI. ROS Other: All systems not noted in ROS Statement are negative. Past Medical History Past Medical History: Asthma, GERD/Reflux Additional Past Medical History / Comment(s): ruptured lt ear drum from being hit in head by ball/[place] lt ear, ibs, migraines, hiatal hernia,"fatty liver" History of Any Multi-Drug Resistant Organisms: None Reported Past Surgical History: Bariatric Surgery, Cholecystectomy Additional Past Surgical History / Comment(s): GASTRECTOMY WITH SLEEVE, egd/colonoscopy Past Anesthesia/Blood Transfusion Reactions: Motion Sickness Past Psychological History: Anxiety, Depression Smoking Status: Current every day smoker Past Alcohol Use History: Rare Past Drug Use History: None Reported - Past Family History Mother Additional Family Medical History / Comment(s): murmur, papitations, anxiety, depression Father Family Medical History: Fibromyalgia Additional Family Medical History / Comment(s): gout, depression, past drug use General Exam Limitations: no limitations General appearance: alert, in no apparent distress Head exam: Present: atraumatic, normocephalic, normal inspection Eye exam: Present: normal appearance, PERRL, EOMI. Absent: scleral icterus, conjunctival injection, periorbital swelling Pupils: Present: normal accommodation ENT exam: Present: normal exam, normal oropharynx, mucous membranes moist, TM's normal bilaterally, normal external ear exam (Multiple piercings bilateral ears) Neck exam: Present: normal inspection, full ROM. Absent: tenderness, meningismus, lymphadenopathy, thyromegaly Respiratory exam: Present: normal lung sounds bilaterally. Absent: respiratory distress, wheezes, rales, rhonchi, stridor, chest wall tenderness, accessory muscle use Cardiovascular Exam: Present: normal rhythm, tachycardia, normal heart sounds. Absent: systolic murmur, diastolic murmur, rubs, gallop, clicks, JVD GI/Abdominal exam: Present: soft, normal bowel sounds. Absent: distended, tenderness, guarding, rebound, rigid Extremities exam: Present: normal inspection, full ROM, normal capillary refill. Absent: tenderness, pedal edema, joint swelling, calf tenderness Back exam: Present: normal inspection, full ROM, tenderness (Lower back pain ). Absent: muscle spasm, vertebral tenderness, rash noted Neurological exam: Present: alert, oriented X3, CN II-XII intact. Absent: motor sensory deficit Psychiatric exam: Present: normal affect, normal mood Skin exam: Present: warm, dry, intact, normal color. Absent: rash, cyanosis, diaphoretic, erythema, petechiae, pallor, mottled Course Vital Signs 12/13/20 12/13/20 12/13/20 15:12 17:04 18:17 Temperature 100.9 F H 103.2 F H 101.5 F H Pulse Rate 133 H 120 H 108 H Respiratory 22 18 18 Rate Blood Pressure 129/71 123/69 112/58 O2 Sat by Pulse 96 97 98 Oximetry - Reevaluation(s) Reevaluation #1: 12/13/20 18:11 Heart rate 109 temperature down to 101.5 Time: 18:11 Medical Decision Making - Medical Decision Making Chest x-ray shows no acute pulmonary cardiopulmonary process no infiltrates or pneumothorax. Urinalysis shows no signs of infection. Temperatures come down from 103-101.5 with Tylenol and Toradol. Patient also given Motrin prior to discharge. There is no signs of systemic infection, there is no abdominal pain, nausea vomiting or diarrhea. Heart rate down to 108 at discharge. Symptoms started today at 2:30 this afternoon, this is likely a viral illness. Covid test is negative today. Patient to follow up with primary care doctor next week as fluid intake. Dr. Chavez at bedside to evaluate patient. - Lab Data Lab Results 12/13/20 12/13/20 12/13/20 Range/Units 15:45 15:45 15:51 Urine Color Yellow Urine Appearance Clear (Clear) Urine pH 6.0 (5.0-8.0) Ur Specific [place] 1.021 (1.001-1.035) Urine Protein Negative (Negative) Urine Glucose (UA) Negative (Negative) Urine Ketones Trace H (Negative) Urine Blood Trace H (Negative) Urine Nitrite Negative (Negative) Urine Bilirubin Negative (Negative) Urine Urobilinogen <2.0 (<2.0) mg/dL Ur Leukocyte Esterase Negative (Negative) Urine RBC 3 (0-5) /hpf Urine WBC 1 (0-5) /hpf Urine Mucus Rare H (None) /hpf Urine HCG, Qual Not Detected (Not Detectd) Coronavirus (PCR) Not Detected (Not Detectd) Disposition Clinical Impression: Viral illness Disposition: HOME SELF-CARE Condition: Good Instructions (If sedation given, give patient instructions): Fever in Adults (ED), Viral Syndrome (ED) Additional Instructions: Follow-up with the primary care doctor in 1 week, increase fluid intake. Tylenol and/or Motrin for fever and body aches. Return if worsening symptoms or abdominal pain Is patient prescribed a controlled substance at d/c from ED?: No Referrals: Aviva Reyes MD [Primary Care Provider] - 1-2 days Time of Disposition: 18:35
[2020-12-13 17:06] VITALS: RESP 18
--- NOTE | 2020-12-13 18:12 | XR ---
EXAMINATION TYPE: XR chest 2V DATE OF EXAM: 12/13/2020 COMPARISON: NONE HISTORY: Fever and cough. TECHNIQUE: Frontal and lateral views of the chest are obtained. FINDINGS: There is no focal air space opacity, pleural effusion, or pneumothorax seen. The cardiac silhouette size is within normal limits. The osseous structures are intact. IMPRESSION: No acute cardiopulmonary process.
[2020-12-13] MEDS ORDERED: IBUPROFEN 600 MG TAB PO STA (18:15)
[2020-12-13 19:25] VITALS: BP 122/65; PULSE 10; TEMP 100.1
== END 2020-12-13 19:25 | disposition home or self-care (01) ==
LOC: EC 15:10
DX: B34.9 Viral infection, unspecified (principal); J45.909 Unspecified asthma, uncomplicated; K21.9 Gastro-esophageal reflux disease without esophagitis; F17.200 Nicotine dependence, unspecified, uncomplicated
CPT/HCPCS: 81001; 81025; 87635; 71046; 99283; 96372; J1885

== ENCOUNTER → 2022-03-12 | Outpatient (CLI) | payer OTHER ==
[2022-03-12 23:02] LABS: Basophils # (A) 0.07 X 10*3/uL (0.00-0.10); Basophils % (A) 1.2 %; Eosinophils # (A) 0.58 X 10*3/uL (0.04-0.35); Eosinophils % (A) 9.6 %; HCT 29.9 % (37.2-46.3); HGB 8.9 g/dL (12.0-15.0); Immature Grans, Automated 0.2 %; Lymphocytes # (A) 1.99 X 10*3/uL (0.90-5.00); Lymphocytes % (A) 32.9 %; MCH 23.3 pg (27.0-32.0); MCHC 29.8 g/dL (32.0-37.0); MCV 78.3 fL (80.0-97.0); Mean Platelet Volume 10.4 fL (9.5-12.2); Monocytes # (A) 0.43 X 10*3/uL (0.20-1.00); Monocytes % (A) 7.1 %; NRBC Per 100 WBC 0 /100 WBCS (0.0-0.0); Neutrophils # (A) 2.96 X 10*3/uL (1.80-7.70); Platelet Count 368 X 10*3/uL (140-440); RBC 3.82 X 10*6/uL (4.10-5.20); RDW 20.9 % (11.5-14.5); WBC 6.04 X 10*3/uL (4.50-10.00)
== END | disposition home or self-care (01) ==
LOC: LABPAT 15:18
PROVIDERS: ATTEND Obstetrics & Gynecology
DX: Z01.812 Encounter for preprocedural laboratory examination (principal)
CPT/HCPCS: 85025

== ENCOUNTER → 2022-04-19 | Outpatient (CLI) | payer OTHER ==
[2022-04-19 15:17] LABS: Anisocytosis Slight; Basophils # (A) 0.1 k/uL (0-0.2); Basophils % (A) 1 %; Eosinophils # (A) 0.5 k/uL (0-0.7); Eosinophils % (A) 5 %; HCT 35.7 % (34.0-46.0); HGB 10.9 gm/dL (11.4-16.0); Hypochromasia Marked; Lymphocytes # (A) 2.8 k/uL (1.0-4.8); Lymphocytes % (A) 25 %; MCH 25.2 pg (25.0-35.0); MCHC 30.6 g/dL (31.0-37.0); MCV 82.2 fL (80.0-100.0); Mean Platelet Volume 7.2; Microcytosis Slight; Monocytes # (A) 0.5 k/uL (0-1.0); Monocytes % (A) 5 %; Neutrophils # (A) 6.9 k/uL (1.3-7.7); Neutrophils % (A) 63 %; Platelet Count 361 k/uL (150-450); RBC 4.34 m/uL (3.80-5.40); RDW 18.6 % (11.5-15.5); WBC 11.1 k/uL (3.8-10.6)
== END | disposition home or self-care (01) ==
LOC: LABWHC1 14:22
PROVIDERS: ATTEND Obstetrics & Gynecology
DX: Z01.812 Encounter for preprocedural laboratory examination (principal)
CPT/HCPCS: 36415; 85025

== ENCOUNTER 2022-04-25 06:24 | Day surgery (SDC) | payer OTHER ==
[2022-04-23 11:14] VITALS: BMI 34.5
--- NOTE | 2022-04-24 22:10 | P.HPOB ---
History of Present Illness H&P Date: 04/24/22 Chief Complaint: Menorrhagia with irregular cycle This is a 31 y.o. female, 2, para 2, presents for dilatation and curettage with hysteroscopy due to menorrhagia with irregular cycle and endometrial thickening on ultrasound. She complains of irregular menses that re cently became very heavy with clots and she is anemic. Pelvic ultrasound showed uterus measuring 8.8 x 4.4 x 4.3 cm with endometrial thickness of 1.3 cm on cycle day 14. Both ovaries area normal. She would eventually want an endometrial ablation, but needs sampling 1st. Her thyroid was normal. OB Hx: . History of 2 vaginal deliveries. 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 Review of Systems Constitutional: Denies chills, Denies fever Eyes: denies blurred vision, denies pain Ears, nose, mouth and throat: Denies headache, Denies sore throat Cardiovascular: Denies chest pain, Denies shortness of breath Respiratory: Denies cough Gastrointestinal: Denies abdominal pain, Denies diarrhea, Denies nausea, Denies vomiting Genitourinary: Reports menorrhagia Menstruation: Reports menses variable, Reports period heavy Musculoskeletal: Denies myalgias Integumentary: Denies pruritus, Denies rash Neurological: Denies numbness, Denies weakness Psychiatric: Reports anxiety, Reports depression Past Medical History Past Medical History: Asthma, GERD/Reflux Additional Past Medical History / Comment(s): ruptured lt ear drum from being hit in head by ball/[place] lt ear, ibs, migraines, hiatal hernia,"fatty liver" , PAINFUL, HEAVY MENSES History of Any Multi-Drug Resistant Organisms: None Reported Past Surgical History: Bariatric Surgery, Cholecystectomy Additional Past Surgical History / Comment(s): GASTRECTOMY WITH SLEEVE, egd/colonoscopy Past Anesthesia/Blood Transfusion Reactions: Motion Sickness, Postoperative Nausea & Vomiting (PONV) Past Psychological History: Anxiety, Depression Smoking Status: Current every day smoker Past Alcohol Use History: Rare Past Drug Use History: None Reported - Past Family History Mother Additional Family Medical History / Comment(s): murmur, papitations, anxiety, depression Father Family Medical History: Fibromyalgia Additional Family Medical History / Comment(s): gout, depression, past drug use Medications and Allergies Home Medications Medication Instructions Recorded Confirmed Type Multivitamins, Thera [Multivitamin 1 tab PO DAILY 10/27/20 04/23/22 History (formulary)] Fexofenadine/Pseudoephedrine 1 tab PO DAILY 03/02/22 04/23/22 History [Amber-D 24 Hour Tablet] Pantoprazole [Protonix] 40 mg PO QAM 03/02/22 04/25/22 History Vortioxetine Hydrobromide 20 mg PO HS 03/02/22 04/23/22 History [Trintellix] Zolpidem [Ambien] 10 mg PO HS PRN 03/02/22 04/23/22 History Cannabidiol (Cbd) [Epidiolex] 1 dose PO DAILY PRN 03/19/22 04/25/22 History Allergies Allergy/AdvReac Type Severity Reaction Status Date / Time latex Allergy Rash/Hives Verified 04/25/22 06:41 Exam Osteopathic Statement: *. No significant issues noted on an osteopathic structural exam other than those noted in the History and Physical/Consult. HEENT: within normal limits Heart: regular rate and rhythm Lungs: clear to auscultation bilaterally Abdomen: , non-tender Pelvic: uterus small, anteverted, mildly tender with no adnexal masses, mild tenderness on right Extremities: neg. Bianca's Assessment and Plan (1) Endometrial thickening on ultrasound Current Visit: No Status: Acute Code(s): R93.89 - ABNORMAL FINDINGS ON DX IMAGING OF OTH BODY STRUCTURES SNOMED Code(s): 552434895 (2) Menorrhagia with irregular cycle Current Visit: No Status: Acute Code(s): N92.1 - EXCESSIVE AND FREQUENT MENSTRUATION WITH IRREGULAR CYCLE SNOMED Code(s): 539915236 Plan: Proceed with dilatation and curettage with hysteroscopy. I have discussed the risks, benefits, and alternative therapies for the above- mentioned procedure and for both sedation/anesthesia as well as necessary blood products administration, if indicated, as they pertain to this patient. The patient has indicated her understanding and acceptance of the risks and procedures discussed.
[~2022-04-25 06:24] MED LIST: LACTATED RINGERS 1,000 ML IV SCH; LIDOCAINE 1% (10MG/ML) FOR IV START INTRADERMA PRN; Pre Op ABX Message 1 EACH MISC MISCELLANE ONE
[2022-04-25] MEDS ORDERED: ONDANSETRON 4 MG/2 ML VIAL ONE (06:47)
[2022-04-25] MEDS ORDERED: DEXAMETHASONE SOD PHOSPHATE 4 MG/ML 1 ML VIAL IVP ONE (07:02)
[2022-04-25] MEDS ORDERED: SUCCINYLCHOLINE CHLORIDE 200 MG/10 ML VIAL IV ONE (07:20)
[2022-04-25] MEDS ORDERED: fentaNYL (PF) 50 MCG/ML 2 ML AMP ONE (07:20)
[2022-04-25] MEDS ORDERED: LIDOCAINE 2% INJ 20 MG/ML (2 ML VIAL) ONE (07:20)
[2022-04-25] MEDS ORDERED: MIDAZOLAM 2 MG/2 ML VIAL ONE (07:20)
[2022-04-25] MEDS ORDERED: PROPOFOL 10 MG/ML 20 ML VIAL IV ONE (07:20)
--- NOTE | 2022-04-25 07:51 | P.OP ---
Date of Procedure: 04/25/22 Preoperative Diagnosis: Menorrhagia with irregular cycle Endometrial thickening Blood loss anemia Postoperative Diagnosis: Same Procedure(s) Performed: Dilation and curettage with hysteroscopy Anesthesia: MARYAN Surgeon: Meeta Cordova Estimated Blood Loss (ml): 5 Pathology: other (Endometrial curettings) Condition: stable Disposition: floor Indications for Procedure: This is a 31 y.o. female, 2, para 2, presents for dilatation and curettage with hysteroscopy due to menorrhagia with irregular cycle and endometrial thickening on ultrasound. She complains of irregular menses that recently became very heavy with clots and she is anemic. Pelvic ultrasound showed uterus measuring 8.8 x 4.4 x 4.3 cm with endometrial thickness of 1.3 cm on cycle day 14. Both ovaries area normal. She would eventually want an endometrial ablation, but needs sampling 1st. Her thyroid was normal. Operative Findings: Uterus is midposition, sounded to 9 cm. No adnexal masses are palpated. A large amount of endometrial curettings are obtained. Both tubal ostia are visualized. Dyssynchronous endometrial pattern is noted. Description of Procedure: The patient is taken to the operating room where she is placed in the dorsal lithotomy position. She is prepped and draped in the normal sterile fashion. Her bladder is drained with a catheter. Examination is performed under anesthesia. Uterus is found to be mid position with no adnexal masses palpated. A weighted speculum was placed in the patient's vagina and a right angle retractor was used to visualize the cervix. The anterior lip of the cervix is grasped with a Allis clamp. Next the uterus is sounded to 9 cm. Cervix is gently dilated with Carl dilators hysteroscopy is performed using normal saline. The above noted findings are made and pictures are taken. There is current menstruation noted. Next the cervix is gently dilated further and a polyp forceps is introduced. A moderate amount of endometrial tissue was obtained. Next a medium-size sharp curette is introduced and sharp curettage is performed and delivery texture was noted. A large amount of endometrial tissue is obtained. Next the Allis clamp was removed from the anterior lip of the cervix. No bleeding is noted. All instruments are removed from the vagina. All sponge counts are correct. Patient is then taken to recovery room in stable condition.
[2022-04-25 08:11] VITALS: TEMP 97
[2022-04-25 08:57] VITALS: RESP 16
[2022-04-25 09:03] VITALS: BP 132/85; PULSE 66
== END 2022-04-25 09:30 | disposition home or self-care (01) ==
LOC: OR 06:24
PROVIDERS: ATTEND Obstetrics & Gynecology
DX: N92.0 Excessive and frequent menstruation with regular cycle (principal); R93.89 Abnormal findings on diagnostic imaging of other specified body structures; D50.0 Iron deficiency anemia secondary to blood loss (chronic); J45.909 Unspecified asthma, uncomplicated; K21.9 Gastro-esophageal reflux disease without esophagitis; K58.9 Irritable bowel syndrome, unspecified; G43.909 Migraine, unspecified, not intractable, without status migrainosus; K44.9 Diaphragmatic hernia without obstruction or gangrene; K76.0 Fatty (change of) liver, not elsewhere classified; F17.210 Nicotine dependence, cigarettes, uncomplicated; F32.A Depression, unspecified; F41.9 Anxiety disorder, unspecified; R01.1 Cardiac murmur, unspecified; Z90.49 Acquired absence of other specified parts of digestive tract; Z98.84 Bariatric surgery status; Z98.890 Other specified postprocedural states; Z86.59 Personal history of other mental and behavioral disorders; Z82.69 Family history of other diseases of the musculoskeletal system and connective tissue; Z82.0 Family history of epilepsy and other diseases of the nervous system; Z79.899 Other long term (current) drug therapy; Z79.1 Long term (current) use of non-steroidal anti-inflammatories (NSAID); Z91.040 Latex allergy status
CPT/HCPCS: 81025; 88305; 58558; J2250; J0330; J1100; J2405; J3010; J2704; J2001

== ENCOUNTER → 2022-06-19 | Outpatient (CLI) | payer OTHER ==
[2022-06-19 23:59] LABS: African American GFR (CKD) 123.4 (60.0-200.0); Anion Gap 10.1 mmol/L (10.00-18.00); BUN/Creat Ratio 7.84 Ratio (12.00-20.00); Blood Urea Nitrogen 5.8 mg/dL (9.0-27.0); Calcium 8.9 mg/dL (8.7-10.3); Carbon Dioxide 27.8 mmol/L (20.0-27.5); Non-African American GFR(CKD) 106.4 (60.0-200.0); Potassium 4.6 mmol/L (3.5-5.5)
[2022-06-20 00:01] LABS: Basophils # (A) 0.09 X 10*3/uL (0.00-0.10); Basophils % (A) 1.7 %; Eosinophils # (A) 0.71 X 10*3/uL (0.04-0.35); Eosinophils % (A) 13.3 %; HCT 32.1 % (37.2-46.3); HGB 9.8 g/dL (12.0-15.0); Immature Grans, Automated 0.2 %; Lymphocytes # (A) 1.81 X 10*3/uL (0.90-5.00); Lymphocytes % (A) 33.9 %; MCH 25.5 pg (27.0-32.0); MCHC 30.5 g/dL (32.0-37.0); MCV 83.4 fL (80.0-97.0); Mean Platelet Volume 10.8 fL (9.5-12.2); Monocytes # (A) 0.41 X 10*3/uL (0.20-1.00); Monocytes % (A) 7.7 %; NRBC Per 100 WBC 0 /100 WBCS (0.0-0.0); Neutrophils # (A) 2.31 X 10*3/uL (1.80-7.70); Neutrophils % (A) 43.2 %; Platelet Count 334 X 10*3/uL (140-440); RBC 3.85 X 10*6/uL (4.10-5.20); RDW 16.2 % (11.5-14.5); WBC 5.34 X 10*3/uL (4.50-10.00)
== END | disposition home or self-care (01) ==
LOC: LABPAT 13:50
PROVIDERS: ATTEND Obstetrics & Gynecology
DX: Z01.812 Encounter for preprocedural laboratory examination (principal)
CPT/HCPCS: 80048; 85025

== ENCOUNTER 2022-06-28 05:45 | Day surgery (SDC) | payer OTHER ==
[2022-06-25 12:23] VITALS: BMI 35.5
--- NOTE | 2022-06-27 13:14 | P.HPOB ---
History of Present Illness H&P Date: 06/27/22 Chief Complaint: Menorrhagia with irregular cycle This is a 31 y.o. female, 2, para 2, who presents for laparoscopic total hysterectomy with bilateral salpingectomy using Davinci and diagnostic cystoscopy, possible bilateral oophorectomy, possible total abdominal hys terectomy with bilateral salpingo-oophorectomy. She recently underwent a Novasure endometrial ablation and states her menses are still heavy, painful, and irregular. She is still soaking through a super plus tampon within 2 hours. She would like definitive surgical treatment. Her last ultrasound showed uterus measuring 8.8 x 4.4 x 4.3 cm with endometrium of 1.3 cm and normal ovaries. She also complains of pain with intercourse. OB Hx: . History of 2 vaginal deliveries. [employer] Technician Hx: No history of STDs Social Hx: . Homemaker. Review of Systems Constitutional: Denies chills, Denies fever Eyes: denies blurred vision, denies pain Ears, nose, mouth and throat: Denies headache, Denies sore throat Cardiovascular: Denies chest pain, Denies shortness of breath Respiratory: Denies cough Gastrointestinal: Reports heartburn, Denies abdominal pain, Denies diarrhea, Denies nausea, Denies vomiting Genitourinary: Reports dyspareunia, Reports menorrhagia, Reports pelvic pain Menstruation: Reports menses 8 or > days, Reports menses variable, Reports period heavy Musculoskeletal: Reports low back pain Integumentary: Denies pruritus, Denies rash Neurological: Denies numbness, Denies weakness Psychiatric: Reports anxiety, Denies depression Endocrine: Reports fatigue, Denies weight change Past Medical History Past Medical History: Asthma, GERD/Reflux Additional Past Medical History / Comment(s): ruptured lt ear drum from being hit in head by ball/cheesh-na lt ear, ibs, migraines, hiatal hernia,"fatty liver" HEAVY FREQ MENSES History of Any Multi-Drug Resistant Organisms: None Reported Past Surgical History: Bariatric Surgery, Cholecystectomy, Tubal Ligation, Uterine Ablation Additional Past Surgical History / Comment(s): GASTRECTOMY WITH SLEEVE, egd/colonoscopy, D & C Past Anesthesia/Blood Transfusion Reactions: Motion Sickness Past Psychological History: Anxiety Smoking Status: Current every day smoker Past Alcohol Use History: Rare Past Drug Use History: None Reported - Past Family History Mother Additional Family Medical History / Comment(s): murmur, papitations, anxiety, depression Father Family Medical History: Fibromyalgia Additional Family Medical History / Comment(s): gout, depression, past drug use Medications and Allergies Home Medications Medication Instructions Recorded Confirmed Type Multivitamins, Thera [Multivitamin 1 tab PO DAILY 10/27/20 06/28/22 History (formulary)] Fexofenadine/Pseudoephedrine 1 tab PO DAILY 03/02/22 06/28/22 History [Amber-D 24 Hour Tablet] Pantoprazole [Protonix] 40 mg PO QAM 03/02/22 06/28/22 History Vortioxetine Hydrobromide 20 mg PO HS 03/02/22 06/28/22 History [Trintellix] Zolpidem [Ambien] 10 mg PO HS PRN 03/02/22 06/28/22 History Cannabidiol (Cbd) [Epidiolex] 1 dose PO DAILY PRN 03/19/22 06/28/22 History Allergies Allergy/AdvReac Type Severity Reaction Status Date / Time latex Allergy Rash/Hives Verified 06/28/22 06:12 Exam Osteopathic Statement: *. No significant issues noted on an osteopathic structural exam other than those noted in the History and Physical/Consult. HEENT: within normal limits Heart: regular rate and rhythm Lungs: clear to auscultation bilaterally Abdomen: soft, non-tender Pelvic: uterus anteverted, non-tender, no adnexal masses, mild R. adnexal tenderness Extremities: neg. Bianca's Results Abnormal Lab Results - Last 24 Hours (Table) 06/19/22 Range/Units 14:33 Crossmatch See Detail Assessment and Plan (1) Dysmenorrhea Current Visit: No Status: Acute Code(s): N94.6 - DYSMENORRHEA, UNSPECIFIED SNOMED Code(s): 812146797 (2) Menorrhagia with irregular cycle Current Visit: No Status: Acute Code(s): N92.1 - EXCESSIVE AND FREQUENT MENSTRUATION WITH IRREGULAR CYCLE SNOMED Code(s): 390319657 Plan: Proceed with laparoscopic total hysterectomy with bilateral salpingectomy with Davinci and diagnostic cystoscopy, possible bilateral oophorectomy, possible total abdominal hysterectomy with bilateral salpingooophorectomy. I have discussed the risks, benefits, and alternative therapies for the above- mentioned procedure and for both sedation/anesthesia as well as necessary blood products administration, if indicated, as they pertain to this patient. The patient has indicated her understanding and acceptance of the risks and procedures discussed.
[2022-06-28] MEDS ORDERED: ONDANSETRON 4 MG/2 ML VIAL IVP ONE ×2 (05:57→06:45)
[2022-06-28] MEDS ORDERED: DEXAMETHASONE SOD PHOSPHATE 4 MG/ML 1 ML VIAL IV ONE (05:57)
[2022-06-28] MEDS ORDERED: MIDAZOLAM 2 MG/2 ML VIAL IV PRN (05:57)
[2022-06-28] MEDS ORDERED: LIDOCAINE 1% (10MG/ML) FOR IV START INTRADERMA PRN (05:57)
[2022-06-28] MEDS ORDERED: LACTATED RINGERS 1,000 ML IV ONE ×2 (06:03→08:24)
[2022-06-28] MEDS ORDERED: SCOPOLAMINE 1 MG/72 HR PATCH TRANSDERM ONE (06:46)
[2022-06-28] MEDS ORDERED: DEXAMETHASONE SOD PHOSPHATE 4 MG/ML 1 ML VIAL IVP ONE (06:46)
[2022-06-28] MEDS ORDERED: MIDAZOLAM 2 MG/2 ML VIAL IVP ONE (06:51)
[2022-06-28] MEDS ORDERED: fentaNYL (PF) 50 MCG/1 ML VIAL IVP ONE (07:00)
[2022-06-28] MEDS ORDERED: NALBUPHINE 10 MG/ML (1 ML AMP) ONE (07:15)
[2022-06-28] MEDS ORDERED: ePHEDrine 50 MG/ML 1 ML VIAL ONE (07:15)
[2022-06-28] MEDS ORDERED: MIDAZOLAM 2 MG/2 ML VIAL ONE (07:15)
[2022-06-28] MEDS ORDERED: LIDOCAINE 2% INJ 20 MG/ML (2 ML VIAL) ONE (07:15)
[2022-06-28] MEDS ORDERED: GLYCOPYRROLATE 0.2 MG/ML 2 ML VIAL ONE (07:15)
[2022-06-28] MEDS ORDERED: ROCURONIUM 10 MG/ML (5 ML VIAL) IV ONE (07:15)
[2022-06-28] MEDS ORDERED: PROPOFOL 10 MG/ML 20 ML VIAL IV ONE (07:15)
[2022-06-28] MEDS ORDERED: fentaNYL (PF) 50 MCG/ML 2 ML AMP ONE (07:15)
[2022-06-28] MEDS ORDERED: KETOROLAC 15 MG/ML 1 ML VIAL ONE (07:15)
[2022-06-28] MEDS ORDERED: NEOSTIGMINE 1 MG/ML 10 ML VIAL ONE (07:15)
[2022-06-28] MEDS ORDERED: LIDOCAINE 4% LTA KIT (4 ML) TOPICAL ONE (07:15)
[2022-06-28] MEDS ORDERED: NALBUPHINE 10 MG/ML (1 ML AMP) IM ONE (07:45)
[2022-06-28] MEDS ORDERED: BUPIVACAIN-EPI 0.25%-1:200,000 30 ML VIAL SQ ONE ×2 (07:48)
--- NOTE | 2022-06-28 08:39 | P.ANPRN ---
Procedure Note - Anesthesia - Epidural/Spinal Spinal Time Out Performed: Yes Date of Procedure: 06/28/22 Procedure Start Time: 06:55 Procedure Stop Time: 07:12 Location of Patient: PreOp Indication: Acute Post-Operative Pain, Requested by Surgeon Sedation Type: Sedate with meaningful contact maintained Preparation: Sterile Dressing Position: Sitting Catheter: None Needle Guage: 25, Other (see comment) (25-gauge 3 .5 inch spinal needle used) Blood Aspirated: No Pain Paresthesia on Injection Noted: No Events: Uneventful and Well Tolerated (Multiple attempts done at 2 interspinous spaces at L4-L5, and L3-L4 levels. Dr. Hanson helped.)
[2022-06-28] MEDS: HYDROmorphone 0.5 MG/0.5 ML SYRINGE IVP PRN ×2 (09:30→10:30)
--- NOTE | 2022-06-28 09:41 | P.OP ---
Date of Procedure: 06/28/22 Preoperative Diagnosis: Menorrhagia with irregular cycle Dysmenorrhea Postoperative Diagnosis: Same Procedure(s) Performed: Total laparoscopic hysterectomy with bilateral salpingectomy with da Sarika and diagnostic cystoscopy Anesthesia: GETA, spinal ([facility] [place]) Surgeon: Meeta Cordova [employer] Consultant #1: Jemma Martin Estimated Blood Loss (ml): 50 Urine output (ml): 300 Pathology: other (Uterus with cervix, bilateral fallopian tubes) Condition: stable Disposition: floor Indications for Procedure: This is a 31 y.o. female, 2, para 2, who presents for laparoscopic total hysterectomy with bilateral salpingectomy using Davinci and diagnostic cystoscopy, possible bilateral oophorectomy, possible total abdominal hysterectomy with bilateral salpingo-oophorectomy. She recently underwent a Novasure endometrial ablation and states her menses are still heavy, painful, and irregular. She is still soaking through a super plus tampon within 2 hours. She would like definitive surgical treatment. Her last ultrasound showed u terus measuring 8.8 x 4.4 x 4.3 cm with endometrium of 1.3 cm and normal ovaries. She also complains of pain with intercourse. Operative Findings: Normal appearing uterus tubes and ovaries are noted. Evidence of previous tubal ligation was noted. Liver did appear to be slightly enlarged. Description of Procedure: The patient was taken to the operating room where she is placed in the dorsal lithotomy position on a Huggie board. Her arms are tucked at her sides and cushioned. Once she is in adequate position and anesthesia was given, the Huggie board is inflated. She is prepped and draped in the normal sterile fashion. Next a weighted speculum was placed in the patient's vagina. A right angle retractor is used to visualize the cervix. The anterior lip of the cervix is grasped with a single-tooth tenaculum. Uterus is sounded to 8-1/2 cm. Cervix is gently dilated with Carl dilators. Next the cervix is measured at 3 cm. 0 Vicryl stitches are placed at the 3 and 9:00 positions on the cervix and held. Next the HUMI manipulator is placed within the cervix and then the 0 Vicryl sutures are brought through the HUMI and then the cervical cup is pressed against the cervix until the click is heard. Next the bladder Miller catheter is inserted. Gloves are changed and attention is turned to the abdomen. The uterus is anteverted and then marked on the abdomen. An incision is made above the umbilicus approximately 8 cm above the top of the uterus and then a 5 mm disposable bladeless trocar is inserted under direct visualization with low flow. Once inside high flow is turned on and intra-abdominal contents were inspected. Another incision is made on the right side approximately 8 cm lateral to the umbilicus in the midline and a 8 mm da Sarika port is placed under direct visualization. The same procedure is carried out on the left side. Next an bilingual executive assistant port is placed approximately 6 cm superior to the right da Sarika port and lateral to the camera port using a 12 mm trocar under direct visualization. Next the 5 mm camera sleeved is replaced with an 8 mm da Sarika port. Next the da Sarika robot is docked to the patient from her left side. The ports are attached to the arms. Smoke evacuator is also attached. The camera is inserted and then a monopolar scissors is placed through the right port and a [place] forcep was placed through the left port under direct visualization. Energy is attached to both ports. At this time I broke scrub to go to the robot console. The end of the left fallopian tube is grasped by the bilingual executive assistant and bipolar energy is used to cauterize the mesosalpinx. This is removed with monopolar scissors and removed through the port. The remainder of the fallopian tube is then grasped with the grasper and bipolar energy is applied along with monopolar cutting along the mesosalpinx. Next the uterine ovarian ligaments are cauterized with bipolar energy and then monopolar scissors are used to open up the posterior leaf of the broad ligament down to the uterosacral ligaments. Uterine arteries are then cauterized with bipolar energy using the [place] grasper. Monopolar scissors were then used to carefully dissect the bladder reflection and the bladder flap is created. Next attention is turned to the right side of the pelvis. The end of the right fallopian tube is grasped and then bipolar energy is applied to the mesosalpinx. Monopolar scissors were then used to remove this portion of the tube and the end of the tube was removed through the bilingual executive assistant port. The remainder of the mesosalpinx is then cauterized using bipolar energy and cutting with monopolar scissors. The uterine ovarian ligaments are cauterized with bipolar energy and then the posterior edge of the broad leaf is opened up to the uterosacral ligaments. Uterine arteries are cauterized with bipolar energy. Next the uterus is retroverted and the balloon is inflated. Monopolar scissors are used to cut through the vaginal cuff along the HUMI cuff anteriorly. This is carried around to the right side again using monopolar and bipolar energy. The uterus is anteverted and then the posterior cuff is cut along the HUMI cuff using monopolar scissors. The remainder of the left side of the cuff is removed with monopolar and bipolar energy. Once the uterus is freed it is removed through the vagina. Monopolar and bipolar energy are used to cauterize any small bleeders left behind. Next the arms are switched out to the right arm with medical suture cut and the left arm with a Gerald grasper. An O-Stratafix suture is then used to suture from the right side of the cuff across to the left side in a running fashion after securing the suture with the small loop on the end. Once the left side of the cuff was reached, a couple more sutures were placed going towards the right side to secure the suture. Suture was then cut and removed from the field. Irrigation was carried out. Good hemostasis was noted. Picture was taken. Both ovaries appeared normal. Next the instruments are removed from the arms. The arms are detached from the trochars. The da Sarika robot is then undocked and stowed. The trochars are removed after releasing the pneumoperitoneum area incisions are then sutured with 4-0 undyed Vicryl suture in a subcuticular fashion and then injected with 1% lidocaine with epi. I regowned and cystoscopy was then performed. Both ureteral orifices were visualized with flow from both sides. Cystoscopy was then completed and Miller catheter was replaced. Clear urine was noted. All sponge and needle counts are correct. The patient is then taken to recovery room in stable condition.
[2022-06-28] MEDS ORDERED: KETOROLAC 15 MG/ML 1 ML VIAL IVP ONE (10:27)
[2022-06-28] MEDS ORDERED: diphenhydrAMINE 50 MG/ML 1 ML VIAL IVP ONE (11:55)
[2022-06-28] MEDS ORDERED: SIMETHICONE 80 MG CHEWABLE PO PRN (12:20)
[2022-06-28] MEDS ORDERED: KETOROLAC 15 MG/ML 1 ML VIAL IVP PRN (12:20)
[2022-06-28] MEDS ORDERED: ZOLPIDEM 5 MG TAB PO PRN (12:20)
[2022-06-28] MEDS ORDERED: ONDANSETRON 4 MG/2 ML VIAL IVP PRN (12:20)
[2022-06-28] MEDS: LACTATED RINGERS 1,000 ML IV SCH (12:52)
[2022-06-28] MEDS: diphenhydrAMINE 50 MG CAP PO PRN (18:40)
[2022-06-28] MEDS: ACETAMINOPHEN TAB 325 MG TAB PO PRN (20:25)
[2022-06-28] MEDS ORDERED: VORTIOXETINE HYDROBROMIDE 20 MG TABLET PO SCH (21:00)
[2022-06-29] MEDS: IBUPROFEN 600 MG TAB PO PRN ×2 (00:31→09:43)
[2022-06-29 02:18] VITALS: RESP 16
[2022-06-29] MEDS: ACETAMINOPHEN TAB 325 MG TAB PO PRN (05:13)
[2022-06-29] MEDS: diphenhydrAMINE 50 MG CAP PO PRN (05:16)
[2022-06-29] MEDS: LACTATED RINGERS 1,000 ML IV SCH (06:18)
[2022-06-29 06:20] LABS: Basophils % (A) 0 %; Eosinophils # (A) 0.1 k/uL (0-0.7); Eosinophils % (A) 1 %; HCT 29.2 % (34.0-46.0); HGB 9.4 gm/dL (11.4-16.0); Hypochromasia Marked; Lymphocytes # (A) 1.6 k/uL (1.0-4.8); Lymphocytes % (A) 21 %; MCHC 32.3 g/dL (31.0-37.0); MCV 83.5 fL (80.0-100.0); Monocytes # (A) 0.6 k/uL (0-1.0); Monocytes % (A) 7 %; Neutrophils # (A) 5.4 k/uL (1.3-7.7); Neutrophils % (A) 69 %; Platelet Count 300 k/uL (150-450); RBC 3.49 m/uL (3.80-5.40); RDW 14.9 % (11.5-15.5); WBC 7.8 k/uL (3.8-10.6)
--- NOTE | 2022-06-29 06:43 | P.DS ---
Providers Date of admission: 06/28/2022 Expected date of discharge: 06/29/22 Attending physician: Meeta Cordova Primary care physician: Aviva Reyes - Discharge Diagnosis(es) (1) Dysmenorrhea Current Visit: No Status: Acute (2) Menorrhagia with irregular cycle Current Visit: No Status: Acute Hospital Course: This is a 31-year-old female who underwent a total laparoscopic hysterectomy with bilateral salpingectomy with to then she and diagnostic cystoscopy on 06/28/2022. Her postoperative course has been uncomplicated. She denies any nausea or vomiting. Pain is fairly well controlled right now with ibuprofen and Tylenol. She is passing some flatus but no bowel movement yet. She is urinating. She has been tolerating regular diet. Vital signs are stable. Abdomen is soft with positive bowel sounds 4. Dressings are dry. Extremities show negative Homans. Impression is status post the above noted procedure postoperative day #1. Plan is to discharge home today. Routine postoperative instructions are given. She is advised follow-up in the office in approximately one week for a postoperative check. She will be given a prescription for ibuprofen and Tylenol and a few oxycodone in case she needs them after she gets home. She is instructed no heavy lifting. She may shower but no tub baths for 1 week. No driving for 1 week. No intercourse for 6 weeks. Procedures: Total laparoscopic hysterectomy with bilateral salpingectomy with da Sarika and diagnostic cystoscopy on 06/28/2022 Patient Condition at Discharge: Stable Plan - Discharge Summary Discharge Rx Participant: Yes New Discharge Prescriptions: New Ibuprofen [Motrin] 600 mg PO Q6HR PRN #60 tab PRN Reason: Mild Discomfort oxyCODONE HCL [OxyIR] 5 mg PO Q6HR PRN #12 tab PRN Reason: Moderate To Severe Pain (4-10) Continue Fexofenadine/Pseudoephedrine [Amber-D 24 Hour Tablet] 1 tab PO DAILY Pantoprazole [Protonix] 40 mg PO QAM Cannabidiol (Cbd) [Epidiolex] 1 dose PO DAILY PRN PRN Reason: sleep Multivitamins, Thera [Multivitamin (formulary)] 1 tab PO DAILY Zolpidem [Ambien] 10 mg PO HS PRN PRN Reason: sleep No Action Vortioxetine Hydrobromide [Trintellix] 20 mg PO HS Discharge Medication List Multivitamins, Thera [Multivitamin (formulary)] 1 tab PO DAILY 10/27/20 [History] Fexofenadine/Pseudoephedrine [Amber-D 24 Hour Tablet] 1 tab PO DAILY 03/02/22 [History] Pantoprazole [Protonix] 40 mg PO QAM 03/02/22 [History] Vortioxetine Hydrobromide [Trintellix] 20 mg PO HS 03/02/22 [History] Zolpidem [Ambien] 10 mg PO HS PRN 03/02/22 [History] Cannabidiol (Cbd) [Epidiolex] 1 dose PO DAILY PRN 03/19/22 [History] Ibuprofen [Motrin] 600 mg PO Q6HR PRN #60 tab 06/29/22 [Rx] oxyCODONE HCL [OxyIR] 5 mg PO Q6HR PRN #12 tab 06/29/22 [Rx] Follow up Appointment(s)/Referral(s): Meeta Cordova DO [Doctor of Osteopathic Medicine] - 1 Week Activity/Diet/Wound Care/Special Instructions: Activity as tolerated. Diet as tolerated. May shower, but no tub baths for 1 week. No intercourse for 6 weeks. No heavy lifting. Discharge Disposition: HOME SELF-CARE
[2022-06-29] MEDS ORDERED: PANTOPRAZOLE 40 MG TABLET PO SCH (07:30)
[2022-06-29] MEDS ORDERED: LORATADINE-PSEUDOEPH 5-120 MG 1 EACH TAB.ER.12H PO SCH (09:00)
[2022-06-29] MEDS ORDERED: MULTIVITAMINS, THERA 1 EACH TAB PO SCH (09:00)
[2022-06-29] MEDS ORDERED: ACETAMINOPHEN TAB 325 MG TAB PO PRN (09:43)
[2022-06-29 10:27] VITALS: BP 115/69; PULSE 61; TEMP 98.2
--- NOTE | 2022-06-29 11:16 | P.PN ---
Progress Note - Text 06/29/22 618am 31-year-old female status post surgery with Dr. Cordova. Patient had a spinal Duramorph injection for postop pain control, patient seen and evaluated. Patient has a VAS of 5, no complains of nausea vomiting she does have pruritus which should subside by the end of the day
== END 2022-06-29 10:55 | disposition home or self-care (01) ==
LOC: OR 05:45 → 4FBP 11:57 → OR 06-29 10:55
PROVIDERS: ATTEND Obstetrics & Gynecology
DX: N94.6 Dysmenorrhea, unspecified (principal); N92.0 Excessive and frequent menstruation with regular cycle; J45.909 Unspecified asthma, uncomplicated; K21.9 Gastro-esophageal reflux disease without esophagitis; G43.909 Migraine, unspecified, not intractable, without status migrainosus; K44.9 Diaphragmatic hernia without obstruction or gangrene; F41.9 Anxiety disorder, unspecified; K76.0 Fatty (change of) liver, not elsewhere classified; F17.200 Nicotine dependence, unspecified, uncomplicated; F10.90 Alcohol use, unspecified, uncomplicated; Z98.84 Bariatric surgery status; Z90.49 Acquired absence of other specified parts of digestive tract; Z98.51 Tubal ligation status; Z81.8 Family history of other mental and behavioral disorders; Z82.69 Family history of other diseases of the musculoskeletal system and connective tissue; Z82.49 Family history of ischemic heart disease and other diseases of the circulatory system; Z79.899 Other long term (current) drug therapy; Z79.1 Long term (current) use of non-steroidal anti-inflammatories (NSAID); Z91.040 Latex allergy status
CPT/HCPCS: 81025; 86900; 86901; 85025; 86850; 86920; 58571; J2250; J1200; J1100; J0690; J2405; J1885; J1170; J3010; 88307

== ENCOUNTER → 2022-08-27 | Outpatient (CLI) | payer OTHER ==
--- NOTE | 2022-08-28 08:50 | MR ---
EXAMINATION TYPE: MR lumbar spine wo con DATE OF EXAM: 08/27/2022 COMPARISON: NONE HISTORY: Low back pain that radiates down right side TECHNIQUE: Multiplanar, multisequence imaging of the lumbar spine is performed without IV contrast. FINDINGS: Sagittal images of the lumbar spine show vertebral body heights and alignment to appear sat isfactory. Disc desiccation L4-L5 and L5-S1 levels. Disc space heights are maintained. The conus med ullaris is normal in position and signal ending mid L1 level. The bone marrow signal intensity is wi thin normal limits. Axial images show T12-L1 through the L3-L4 levels to appear within normal limits. Axial images at L4-L5 level mild broad disc bulge and mild facet arthropathy. Spinal canal is preserv ed. Bilateral neural foramina are patent. Axial images at L5-S1 level shows right based right paracentral/foraminal disc protrusion effacing an terior thecal sac with slight mass effect along the central right L5 nerve sagittal image 9 and axial image 2. Bilateral neural foramina remain patent. Paraspinal muscle bulk is preserved. 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 Eccentric disc herniation L5-S1 leve l appears to have mass effect or encroachment on the central right L5 nerve and would correlate with patient's symptoms.
== END | disposition home or self-care (01) ==
LOC: RADMRIMAIN 18:24
PROVIDERS: ATTEND Physical Medicine & Rehabilitation
DX: M47.26 Other spondylosis with radiculopathy, lumbar region (principal); M51.17 Intervertebral disc disorders with radiculopathy, lumbosacral region
CPT/HCPCS: 72148

== ENCOUNTER 2024-05-23 05:21 | Emergency (ER) | payer OTHER ==
[2024-05-23 05:30] VITALS: PULSE 94; TEMP 97.8
--- NOTE | 2024-05-23 06:01 | ED ---
Abdominal Pain HPI - General Chief Complaint: Abdominal Pain Stated Complaint: Nausea,Vaginal Bleeding Time Seen by Provider: 05/23/24 05:44 Source: patient Mode of arrival: ambulatory Limitations: no limitations - History of Present Illness Initial Comments: Patient is a 33-year-old female past medical history recurrent UTIs, prior hysterectomy presenting for left lower quadrant left flank pain. Patient states she felt nauseous yesterday but last night began having sharp left flank pain that radiates around the left side of her abdomen. She noted associated dysuria and hematuria. No pain medications taken prior to arrival. Patient did attempt Azo without improvement in symptoms. States she has had about 9 UTIs this year, last one was approximately month ago for which she was on ciprofloxacin. Patient states she feels nauseous but denies vomiting. No black or bloody stools. No constipation. No chest pain or shortness of breath. No fevers but does note chills. Denies vaginal discharge or vaginal bleeding. No hx STIs. - Related Data Home Medications Medication Instructions Recorded Confirmed Multivitamins, Thera [Multivitamin 1 tab PO DAILY 10/27/20 04/29/23 (formulary)] Fexofenadine/Pseudoephedrine 1 tab PO DAILY 03/02/22 04/29/23 [Amber-D 24 Hour Tablet] Pantoprazole [Protonix] 40 mg PO QAM 03/02/22 04/29/23 Zolpidem [Ambien] 10 mg PO HS PRN 03/02/22 04/29/23 Cannabidiol (Cbd) [Epidiolex] 1 dose PO DAILY PRN 03/19/22 04/29/23 DULoxetine HCL [Cymbalta] 60 mg PO DAILY 04/22/23 04/29/23 Previous Rx's Medication Instructions Recorded Ibuprofen [Motrin] 600 mg PO Q6HR PRN #60 tab 06/29/22 Cefpodoxime Proxetil [Vantin] 200 mg PO Q12HR 14 Days #28 tab 05/23/24 Allergies Allergy/AdvReac Type Severity Reaction Status Date / Time latex Allergy Rash/Hives Verified 05/23/24 05:26 Review of Systems ROS Statement: Those systems with pertinent positive or pertinent negative responses have been documented in the HPI. ROS Other: All systems not noted in ROS Statement are negative. Past Medical History Past Medical History: Asthma, GERD/Reflux Additional Past Medical History / Comment(s): ruptured lt ear drum from being hit in head by ball/cheesh-na lt ear, ibs, migraines, hiatal hernia,"fatty liver" History of Any Multi-Drug Resistant Organisms: None Reported Past Surgical History: Bariatric Surgery, Cholecystectomy, Hysterectomy Additional Past Surgical History / Comment(s): GASTRECTOMY WITH SLEEVE, egd/colonoscopy, hysterectomy jun 2022 Past Anesthesia/Blood Transfusion Reactions: Motion Sickness Past Psychological History: Anxiety, Depression Smoking Status: Never smoker - Past Family History Mother Additional Family Medical History / Comment(s): murmur, papitations, anxiety, depression Father Family Medical History: Fibromyalgia Additional Family Medical History / Comment(s): gout, depression, past drug use General Exam - General Exam Comments Initial Comments: PE: CONSTITUTIONAL: No apparent distress, well appearing, though somewhat uncomfortable appearing SKIN: Warm, dry, no jaundice, hives or petechiae, skin changes overlying area of pain EYES: Pupils are equally round, extraocular movements intact without nystagmus, clear conjunctiva, non-icteric sclera HENT: Normocephalic, atraumatic, moist mucus membranes, oropharynx clear without exudates NECK: , Full range of motion, normal appearance PULMONARY: Clear to auscultation without wheezes, rhonchi, or rales, normal excursion, no accessory muscle use and no stridor CARDIOVASCULAR: Regular rate, rhythm, normal S1 and S2. No appreciated murmurs, rubs or gallops. Extremities well-perfused GASTROINTESTINAL: Soft, active bowel sounds throughout, tender to palpation in the left lower quadrant, suprapubic region, left CVA tenderness, referred pain to left lower quadrant patient of the right lower quadrant, non-distended, no palpable masses, no rebound or guarding. No hepatosplenomegaly GENITOURINARY: MUSCULOSKELETAL: Extremities have no gross deformity, no edema, redness, or swelling. NEUROLOGIC:_a/o x 3, GCS 15, normal mentation and speech. Moves all extremities x 4 without motor or sensory deficit PSYCHIATRIC:_normal mood and affect, thought process is clear and linear Limitations: no limitations Course Vital Signs 05/23/24 05/23/24 05:26 08:08 Temperature 97.8 F Pulse Rate 94 94 Respiratory 20 18 Rate Blood Pressure 134/87 128/94 O2 Sat by Pulse 96 896 H Oximetry Medical Decision Making - Medical Decision Making Was pt. sent in by a medical professional or institution (, [facility], [facility]AIL[facility], urgent care, hospital, or assisted...) When possible be specific @ -No Did you speak to anyone other than the patient for history (EMS, parent, family, police, friend...)? What history was obtained from this source @ -No Did you review nursing and triage notes (agree or disagree)? Why? @ -I reviewed and agree with nursing and triage notes Were old charts reviewed (outside hosp., previous admission, EMS record, old EKG, old radiological studies, urgent care reports/EKG's, assisted records)? Report findings @ -Medical records reviewed Differential Diagnosis (chest pain, altered mental status, abdominal pain women, abdominal pain men, vaginal bleeding, weakness, fever, dyspnea, syncope, h eadache, dizziness, GI bleed, back pain, seizure, CVA, palpatations, mental health, musculoskeletal)? @Differential Abdominal Pain Women: Appendicitis, Cholecystitis, diverticulosis, ischemic bowel, pancreatitis, hepatitis, UTI, gastroenteritis, AAA, incarcerated hernia, bowel obstruction, constipation, inflammatory bowel, hepatitis, peptic ulcer disease, splenic infarction, perforated viscus, vulvitis, ovarian torsion, PID, kidney stone, placenta abruption, this is not meant to be an all-inclusive list Differential diagnosis remains broad however top considerations include ureterolithiasis, diverticulitis, bowel obstruction, inflammatory bowel, UTI, pyelonephritis, ovarian torsion, this is not all inclusive list. Most suspicious for ureterolithiasis in setting hematuria, flank pain, + CVA TTP. EKG interpreted by me (3pts min.). @ -As above X-rays interpreted by me (1pt min.). @ -None done CT interpreted by me (1pt min.). @ -No ureterolithiasis identified, mild left hydronephrosis, no obstruction, no free air or free fluid U/S interpreted by me (1pt. min.). @ -None done What testing was considered but not performed or refused? (CT, X-rays, U/S, labs)? Why? @ -None What meds were considered but not given or refused? Why? @ -None Did you discuss the management of the patient with other professionals (professionals i.e. Dr., PA, BAILIFF, lab, RT, psych nurse, clinical social work aide, drain layer, teacher, army senior officer, manager case management)? Give summary @ -No Was smoking cessation discussed for >3mins.? @ -No Was critical care preformed (if so, how long)? @ -No Were there social determinants of health that impacted care today? How? (Homelessness, low income, unemployed, alcoholism, drug addiction, transportation, low edu. Level, literacy, decrease access to med. care, longterm, rehab)? @ -No Was there de-escalation of care discussed even if they declined (Discuss DNR or withdrawal of care, Hospice)? @ -No What co-morbidities impacted this encounter? (DM, HTN, Smoking, COPD, CAD, Cancer, CVA, ARF, Chemo, Hep., AIDS, mental health diagnosis, sleep apnea, morbid obesity)? @ -None Was patient admitted / discharged? Hospital course, mention meds given and route, prescriptions, significant lab abnormalities, going to OR and other pertinent info. @ -Hospital course discharged- patient is a 33-year-old female presenting today for 1 day of dysuria, hematuria and left flank pain. Patient assessed upon arrival. She is well-appearing no acute distress, somewhat uncomfortable appearing. Physical exam significant for left CVA tenderness, left tenderness palpation the tenderness of the left lower quadrant of the abdomen, suprapubic tenderness to palpation, somewhat firm throughout palpation of the left side of the abdomen. Discussed with patient plan for CT ab/pelvis , urinanalysis, pain control, labs. Patient agreeable with plan of care. Reviewed patient's labs, significant for mild leukocytosis white blood cell 11.2 urinalysis shows turbid urine with 2+ protein, large blood, positive nitrites, 1+ bilirubin, small leukocyte esterase, greater than 182 red blood cells,, greater than 182 white blood cells, many white blood cell counts moderate bacteria occasional mucus. CT scan significant for mild haziness of urinary bladder with dilation of the left renal collecting system, correlate for recently passed stone and cystitis with urinalysis, right ovarian cyst, right adrenal adenoma. Reassessed pt. Pain is controlled. Updated her to findings including adrenal adenoma. She will follow-up with her primary care provider regarding this. We discussed plan for discharge home with oral antibiotics for pyelonephritis. We discussed signs symptoms warranting return to emergency department. Patient is agreeable plan of care In my medical judgment there is currently no evidence of an immediate life- threatening or surgical condition. Discharge is therefore indicated at this time. Discharge treatment instructions, follow up instructions, and appropriate emergency department return precautions were discussed with the patient and/or medical decision maker. Patient and/or medical decision maker expressed understanding of and agreed with the treatment plan, follow up instructions, and emergency department return precaution. All patient's and/or medical decision maker's questions were answered. The patient was advised that a small risk still exists that a serious condition could develop and was therefore instructed to return to the ED for any changes in symptoms, persistent symptoms, inability to obtain proper follow-up or for any further concerns. Patient received verbal and written instructions for this condition. Undiagnosed new problem with uncertain prognosis? @ -No Drug Therapy requiring intensive monitoring for toxicity (Heparin, Nitro, Insuli n, Cardizem)? @ -No Were any procedures done? @ -No Diagnosis/symptom? @ -Pyelonephritis, adrenal adenoma Acute, or Chronic, or Acute on Chronic? @ -Acute Uncomplicated (without systemic symptoms) or Complicated (systemic symptoms)? @ -Complicated Side effects of treatment? @ -No Exacerbation, Progression, or Severe Exacerbation? @ -No Poses a threat to life or bodily function? How? (Chest pain, [place], [place], pneumonia, PE, COPD, DKA, ARF, appy, cholecystitis, CVA, Diverticulitis, Homicidal, Suicidal, threat to staff... and all critical care pts) @ -Potentially, if left untreated could proceed to sepsis and septic shock, at time of discharge, unlikely - Lab Data Result diagrams: 05/23/24 06:06 05/23/24 06:06 Lab Results 05/23/24 05/23/24 05/23/24 Range/Units 06:06 06:06 06:06 WBC 11.2 H (3.8-10.6) k/uL RBC 4.98 (3.80-5.40) m/uL Hgb 15.0 (11.4-16.0) gm/dL Hct 43.7 (34.0-46.0) % MCV 87.8 (80.0-100.0) fL MCH 30.1 (25.0-35.0) pg MCHC 34.2 (31.0-37.0) g/dL RDW 13.4 (11.5-15.5) % Plt Count 289 (150-450) k/uL MPV 8.5 Neutrophils % 65 % Lymphocytes % 23 % Monocytes % 5 % Eosinophils % 5 % Basophils % 1 % Neutrophils # 7.3 (1.3-7.7) k/uL Lymphocytes # 2.6 (1.0-4.8) k/uL Monocytes # 0.5 (0-1.0) k/uL Eosinophils # 0.5 (0-0.7) k/uL Basophils # 0.1 (0-0.2) k/uL PT 12.1 (10.0-12.5) sec INR 1.1 (<1.2) APTT 28.4 (22.0-30.0) sec Sodium (137-145) mmol/L Potassium (3.5-5.1) mmol/L Chloride (98-107) mmol/L Carbon Dioxide (22-30) mmol/L Anion Gap mmol/L BUN (7-17) mg/dL Creatinine (0.52-1.04) mg/dL Est GFR (CKD-EPI)AfAm (>60 ml/min/1.73 sqM) Est GFR (CKD-EPI)NonAf (>60 ml/min/1.73 sqM) Glucose (74-99) mg/dL Calcium (8.4-10.2) mg/dL Total Bilirubin (0.2-1.3) mg/dL AST (14-36) U/L ALT (4-34) U/L Alkaline Phosphatase (38-126) U/L Total Protein (6.3-8.2) g/dL Albumin (3.5-5.0) g/dL Amylase (30-110) U/L Lipase (23-300) U/L Urine Color Dark Brown Urine Appearance Turbid H (Clear) Urine pH 5.5 (5.0-8.0) Ur Specific Jefferson 1.020 (1.001-1.035) Urine Protein 2+ H (Negative) Urine Glucose (UA) Negative (Negative) Urine Ketones Negative (Negative) Urine Blood Large H (Negative) Urine Nitrite Positive H (Negative) Urine Bilirubin 1+ H (Negative) Urine Urobilinogen 6.0 (<2.0) mg/dL Ur Leukocyte Esterase Small H (Negative) Urine RBC >182 H (0-5) /hpf Urine WBC >182 H (0-5) /hpf Urine WBC Clumps Many H (None) /hpf Urine Bacteria Moderate H (None) /hpf Urine Mucus Occasional H (None) /hpf 05/23/24 Range/Units 06:06 WBC (3.8-10.6) k/uL RBC (3.80-5.40) m/uL Hgb (11.4-16.0) gm/dL Hct (34.0-46.0) % MCV (80.0-100.0) fL MCH (25.0-35.0) pg MCHC (31.0-37.0) g/dL RDW (11.5-15.5) % Plt Count (150-450) k/uL MPV Neutrophils % % Lymphocytes % % Monocytes % % Eosinophils % % Basophils % % Neutrophils # (1.3-7.7) k/uL Lymphocytes # (1.0-4.8) k/uL Monocytes # (0-1.0) k/uL Eosinophils # (0-0.7) k/uL Basophils # (0-0.2) k/uL PT (10.0-12.5) sec INR (<1.2) APTT (22.0-30.0) sec Sodium 139 (137-145) mmol/L Potassium 3.6 (3.5-5.1) mmol/L Chloride 106 (98-107) mmol/L Carbon Dioxide 26 (22-30) mmol/L Anion Gap 7 mmol/L BUN 7 (7-17) mg/dL Creatinine 0.72 (0.52-1.04) mg/dL Est GFR (CKD-EPI)AfAm >90 (>60 ml/min/1.73 sqM) Est GFR (CKD-EPI)NonAf >90 (>60 ml/min/1.73 sqM) Glucose 88 (74-99) mg/dL Calcium 8.9 (8.4-10.2) mg/dL Total Bilirubin 1.0 (0.2-1.3) mg/dL AST 30 (14-36) U/L ALT 18 (4-34) U/L Alkaline Phosphatase 70 (38-126) U/L Total Protein 7.8 (6.3-8.2) g/dL Albumin 4.4 (3.5-5.0) g/dL Amylase 35 (30-110) U/L Lipase 60 (23-300) U/L Urine Color Urine Appearance (Clear) Urine pH (5.0-8.0) Ur Specific Jefferson (1.001-1.035) Urine Protein (Negative) Urine Glucose (UA) (Negative) Urine Ketones (Negative) Urine Blood (Negative) Urine Nitrite (Negative) Urine Bilirubin (Negative) Urine Urobilinogen (<2.0) mg/dL Ur Leukocyte Esterase (Negative) Urine RBC (0-5) /hpf Urine WBC (0-5) /hpf Urine WBC Clumps (None) /hpf Urine Bacteria (None) /hpf Urine Mucus (None) /hpf Disposition Clinical Impression: Pyelonephritis, Adrenal adenoma Disposition: HOME SELF-CARE Condition: Good Instructions (If sedation given, give patient instructions): Kidney Infection (ED) Additional Instructions: Every disease is a spectrum and a small chance still exists that a serious condition could develop, for this reason, please monitor yourself closely for new, changing or worsening symptoms, symptoms that persist despite completion of antibiotics, vomiting, uncontrolled pain, fever, inability to tolerate/keep down fluids or your medications, inability to follow up with outpatient providers as instructed and should you experience these symptoms or should you have any further concerns for your wellbeing please return to the ED or call 911 immediately. Your pain can be treated with ibuprofen and acetaminophen. You can take up to 400-600 mg of ibuprofen (Advil, Motrin) 3 times daily (every 8 hours) but can also use lower doses if this relieves your pain. Some people prefer naproxen (Aleve, Naprosyn) which can be taken in doses of 500 mg up to twice a day. Do not take both of these medicines together, and do not combine either with ketorolac (Toradol), meloxicam (Mobic), or indomethacin (Tivorbex). Some people can develop stomach discomfort with higher doses of either ibuprofen or naproxen, if this develops decrease your dose or stop taking it. If you need to take this dose daily for more than a week, please schedule an appointment for re-evaluation with your PCP. Please take these medications with food. You can take up to 1000 mg of acetaminophen (Tylenol) every 6 hours. Be careful as this is included in some medicines like Nyquil, Drayton, Percocet, Vicodin, STANBACK, Goody's Powders, and Excedrin. You can also use lidocaine patches for topical pain. You can purchase 4% patches over the counter at most drug stores. These can be helpful for pain from your muscles or bones. PLEASE call your primary care physician as soon as possible to arrange / discuss plan for followup appointment. Appointment in the next 1-3 days is strongly encouraged if possible. PLEASE let us know here before you leave if there is anything further we can do to be of any assistance. Take care and feel Better! Prescriptions: Cefpodoxime Proxetil [Vantin] 200 mg PO Q12HR 14 Days #28 tab Is patient prescribed a controlled substance at d/c from ED?: No Referrals: Aviva Reyes MD [Primary Care Provider] - 1-2 days
[2024-05-23] MEDS: ONDANSETRON 4 MG/2 ML VIAL IVP STA (06:10)
[2024-05-23] MEDS: SODIUM CHLORIDE 0.9% 1,000 ML IV STA (06:10)
[2024-05-23] MEDS: KETOROLAC 15 MG/ML 1 ML VIAL IVP STA (06:10)
[2024-05-23] MEDS: MORPHINE SULFATE 4 MG/ML SYRINGE IVP STA (06:13)
[2024-05-23 06:16] LABS: Basophils # (A) 0.1 k/uL (0-0.2); Basophils % (A) 1 %; Eosinophils # (A) 0.5 k/uL (0-0.7); Eosinophils % (A) 5 %; HCT 43.7 % (34.0-46.0); Lymphocytes # (A) 2.6 k/uL (1.0-4.8); Lymphocytes % (A) 23 %; MCH 30.1 pg (25.0-35.0); MCHC 34.2 g/dL (31.0-37.0); MCV 87.8 fL (80.0-100.0); Mean Platelet Volume 8.5; Monocytes # (A) 0.5 k/uL (0-1.0); Monocytes % (A) 5 %; Neutrophils # (A) 7.3 k/uL (1.3-7.7); Neutrophils % (A) 65 %; Platelet Count 289 k/uL (150-450); RBC 4.98 m/uL (3.80-5.40); RDW 13.4 % (11.5-15.5); WBC 11.2 k/uL (3.8-10.6)
[2024-05-23 06:26] LABS: INR 1.1 (<1.2); Partial Thromboplastin Time 28.4 sec (22.0-30.0); Prothrombin Time 12.1 sec (10.0-12.5)
[2024-05-23 06:33] LABS: ALT 18 U/L (4-34); AST 30 U/L (14-36); African American GFR (CKD) >90 (>60 ml/min/1.73 sqM); Albumin 4.4 g/dL (3.5-5.0); Alkaline Phosphatase 70 U/L (38-126); Amylase 35 U/L (30-110); Anion Gap 7 mmol/L; Blood Urea Nitrogen 7 mg/dL (7-17); Calcium 8.9 mg/dL (8.4-10.2); Carbon Dioxide 26 mmol/L (22-30); Chloride 106 mmol/L (98-107); Glucose 88 mg/dL (74-99); Lipase 60 U/L (23-300); Non-African American GFR(CKD) >90 (>60 ml/min/1.73 sqM); Potassium 3.6 mmol/L (3.5-5.1); Sodium 139 mmol/L (137-145); Total Protein 7.8 g/dL (6.3-8.2)
[2024-05-23 06:38] LABS: Appearance,Urine Turbid (Clear); Bacteria,Urine Moderate /hpf; Bilirubin,Urine 1+ (Negative); Blood,Urine Large (Negative); Color,Urine Dark Brown; Glucose,Urine (UA) Negative (Negative); Ketones,Urine Negative (Negative); Leukocyte Esterase,Urine Small (Negative); Mucus,Urine Occasional /hpf; Nitrite,Urine Positive (Negative); PH, Urine 5.5 (5.0-8.0); Protein,Urine 2+ (Negative); RBC,Urine >182 /hpf (0-5); WBC,Urine >182 /hpf (0-5)
[2024-05-23] MEDS: cefTRIAXone IN SWFI 1,000 MG/10 ML SYRINGE IVP STA (07:11)
--- NOTE | 2024-05-23 07:19 | CT ---
EXAMINATION TYPE: CT abdomen pelvis wo con CT DLP: 763.5 mGycm, Automated exposure control for dose reduction was used. DATE OF EXAM: 05/23/2024 6:46 AM COMPARISON: CT abdomen pelvis most recent from 09/27/2014 CLINICAL INDICATION: Female, 33 years old with history of abdominal pain; UTI and low back pain TECHNIQUE: Axial CT abdomen pelvis wo con;Sagittal and coronal reformats were created on a separate workstation. Contrast used: mL of , (none if empty) Oral contrast used: without Oral Contrast (none if empty) FINDINGS: LOWER CHEST: Unremarkable ABDOMEN LIVER: Unremarkable GALLBLADDER AND BILE DUCTS: Gallbladder surgically absent. PANCREAS: Unremarkable. SPLEEN: Unremarkable. ADRENAL GLANDS: Right adrenal 16 mm lipid rich adenoma measuring -16 Hounsfield units. KIDNEYS AND URETERS: No evidence 3 mm nonobstructing right renale calculus. No left renal calculi. Mi ld dilation of the left renal collecting system compared to the right. PELVIS BLADDER: Mild Fat stranding suggested around the urinary bladder. No wall thickening. REPRODUCTIVE: Right ovarian 3.4 cm cyst. The right ovary is located in the right inguinal region. ABDOMEN & PELVIS STOMACH AND BOWEL: No evidence of bowel obstruction. Postsurgical changes with gastric lumen. PERITONEUM/RETROPERITONEUM: No evidence of pneumoperitoneum or free fluid. VASCULATURE: No evidence of aortic aneurysm. MUSCULOSKELETAL: No acute osseous abnormalities. M degeneration changes of the spine worse at L5-S1. Transitional vertebra and S1. LYMPH NODES: No gross evidence for lymphadenopathy. SOFT TISSUE/ABDOMINAL WALL: Unremarkable IMPRESSION: 1. Mild hazy inflammation around the urinary bladder with dilation of the left renal collecting syst em correlate for recently passed stone and cystitis with urinalysis. 2. Right 3.4 cm ovarian cyst. 3. Right nonobstructing 3 mm calculus. 4. Postsurgical changes of gastric lumen. 5. Right adrenal lipid rich adenoma measuring 16 mm. [facility], , 05/23/2024 7:17 AM
[2024-05-23 08:09] VITALS: BP 128/94; RESP 18
== END 2024-05-23 08:25 | disposition home or self-care (01) ==
LOC: EC 05:21
DX: N12 Tubulo-interstitial nephritis, not specified as acute or chronic (principal); N13.2 Hydronephrosis with renal and ureteral calculous obstruction; B96.20 Unspecified Escherichia coli [E. coli] as the cause of diseases classified elsewhere; D35.02 Benign neoplasm of left adrenal gland; Z91.040 Latex allergy status
CPT/HCPCS: 99285; 96374; 96375 ×3; 96361; 36415; 80053; 82150; 83690; 85025; 85610; 85730; 81001; 87086; 87077; 87186; 74176; J2270; J2405; J0696; J1885

== ENCOUNTER 2024-05-23 23:34 | Observation (INO) | payer OTHER ==
--- NOTE | 2024-05-24 00:12 | ED ---
Female Urogenital HPI - General Chief complaint: Urogenital Stated complaint: Urogenital/Fever (UTI) Time Seen by Provider: 05/23/24 23:44 Source: patient Mode of arrival: ambulatory Limitations: no limitations - History of Present Illness Initial comments: Patient is a pleasant 33-year-old female history recurrent UTIs presenting today for left flank pain and difficulty urinating. Patient had presented to the emergency department yesterday for similar. Was ultimately diagnosed with pyelonephritis and discharged home on oral antibiotics. At that time showed concerns for recently passed stone but no stone visible. States that since discharge she has been attempting to control her pain with ibuprofen however pain continues. She has had subjective fevers and chills. She states that her temporal thermometer at home measured 101 degrees. Last ibuprofen was at 6 PM tonight. She states that she has not been able to urinate since noon today. Does sensation of urgency and frequency. Endorses nausea but no vomiting. No black or bloody stools. No diarrhea. Denies vaginal discharge or vaginal bleeding. Has had prior hysterectomy but still has both ovaries. - Related Data Home Medications Medication Instructions Recorded Confirmed Pantoprazole [Protonix] 40 mg PO DAILY 03/02/22 05/24/24 Zolpidem [Ambien] 10 mg PO HS PRN 03/02/22 05/24/24 DULoxetine HCL [Cymbalta] 60 mg PO DAILY 04/22/23 05/24/24 FLUoxetine HCL [PROzac] 20 mg PO HS 05/24/24 05/24/24 Fexofenadine HCl [Amber Allergy] 180 mg PO DAILY 05/24/24 05/24/24 Semaglutide [Wegovy] 1.7 mg SQ FR 05/24/24 05/24/24 buPROPion XL [Wellbutrin XL] 150 mg PO DAILY 05/24/24 05/24/24 Previous Rx's Medication Instructions Recorded Naproxen [Naprosyn] 250 mg PO BID PRN 5 Days #10 tab 05/25/24 Phenazopyridine [Pyridium] 100 mg PO TID #9 tab 05/25/24 cefUROXime axetiL [Ceftin] 500 mg PO BID 5 Days #10 tab 05/25/24 Allergies Allergy/AdvReac Type Severity Reaction Status Date / Time latex Allergy Rash/Hives Verified 05/24/24 08:40 Review of Systems ROS Statement: Those systems with pertinent positive or pertinent negative responses have been documented in the HPI. ROS Other: All systems not noted in ROS Statement are negative. Past Medical History Past Medical History: Asthma, GERD/Reflux Additional Past Medical History / Comment(s): ruptured lt ear drum from being hit in head by ball/[place] lt ear, ibs, migraines, hiatal hernia,"fatty liver" History of Any Multi-Drug Resistant Organisms: None Reported Past Surgical History: Bariatric Surgery, Cholecystectomy, Hysterectomy Additional Past Surgical History / Comment(s): GASTRECTOMY WITH SLEEVE, egd/colonoscopy, hysterectomy jun 2022 Past Anesthesia/Blood Transfusion Reactions: Motion Sickness Past Psychological History: Anxiety, Depression Smoking Status: Never smoker - Past Family History Mother Additional Family Medical History / Comment(s): murmur, papitations, anxiety, depression Father Family Medical History: Fibromyalgia Additional Family Medical History / Comment(s): gout, depression, past drug use General Exam - General Exam Comments Initial Comments: PE: CONSTITUTIONAL: No apparent distress, somewhat ill-appearing nontoxic SKIN: Warm, dry, no jaundice, hives or petechiae EYES: Pupils are equally round, extraocular movements intact without nystagmus, clear conjunctiva, non-icteric sclera HENT: Normocephalic, atraumatic, moist mucus membranes, oropharynx clear without exudates NECK: , Full range of motion, normal appearance PULMONARY: Clear to auscultation without wheezes, rhonchi, or rales, normal excursion, no accessory muscle use and no stridor CARDIOVASCULAR: Regular rate, rhythm, normal S1 and S2. No appreciated murmurs, rubs or gallops. Strong radial pulses with intact distal perfusion. No lower extremity edema GASTROINTESTINAL: Soft, active bowel sounds throughout, tenderness palpation left lower quadrant suprapubic region, no right lower quadrant tenderness to palpation, non-distended, no palpable masses, no rebound; with palpation of the left abdomen, left CVA tenderness no hepatosplenomegaly GENITOURINARY: MUSCULOSKELETAL: Extremities have no gross deformity, no edema, redness, or swelling. No calf swelling NEUROLOGIC:_a/o x 3, GCS 15, normal mentation and speech. Moves all extremities x 4 without motor or sensory deficit PSYCHIATRIC:_normal mood and affect, thought process is clear and linear Limitations: no limitations Course Vital Signs 05/23/24 05/24/24 23:38 04:57 Temperature 98.7 F Pulse Rate 95 90 Respiratory 22 18 Rate Blood Pressure 148/87 117/74 O2 Sat by Pulse 96 96 Oximetry Medical Decision Making - Medical Decision Making Was pt. sent in by a medical professional or institution (, PA, [employer], urgent care, hospital, or correction...) When possible be specific @ -No Did you speak to anyone other than the patient for history (EMS, parent, family, police, friend...)? What history was obtained from this source @ -No Did you review nursing and triage notes (agree or disagree)? Why? @ -I reviewed and agree with nursing and triage notes Were old charts reviewed (outside hosp., previous admission, EMS record, old EKG, old radiological studies, urgent care reports/EKG's, correction records)? Report findings @ -No old charts were reviewed Reviewed CT scan performed yesterday, CT and pelvis without contrast, showed mild hazy inflammation around the urinary bladder with dilation of the left renal collecting system, recommends correlating for past 1 and cystitis with urinalysis, 3.4 cm ovarian cyst on the right, right nonobstructing 3 mm calculus, right adrenal adenoma, no obstruction Differential Diagnosis (chest pain, altered mental status, abdominal pain women, abdominal pain men, vaginal bleeding, weakness, fever, dyspnea, syncope, headache, dizziness, GI bleed, back pain, seizure, CVA, palpatations, mental health, musculoskeletal)? @Differential diagnosis remains broad however top considerations include ureterolithiasis, pyelonephritis, urinary tract infection, renal abscess, diverticulitis, ovarian torsion, PID, diverticulitis, this is not all inclusive list. EKG interpreted by me (3pts min.). @ -As above X-rays interpreted by me (1pt min.). @ -None done CT interpreted by me (1pt min.). @ -none done U/S interpreted by me (1pt. min.). @ No hydronephrosis, no free fluid in the pelvis What testing was considered but not performed or refused? (CT, X-rays, U/S, labs)? Why? @ -Did consider obtaining repeat CT however in order to reduce radiation exposure began with ultrasound, ultrasound did not show pyelonephritis, no free fluid in the abdomen on ultrasound of the pelvis, patient had CT done yesterday that showed hydro ureter and dilation of the bladder. Patient's labs have not worsened her leukocytosis actually resolved. Symptoms are consistent with yesterday's presentation. What meds were considered but not given or refused? Why? @ -None Did you discuss the management of the patient with other professionals (professionals i.e. , PA, [employer], lab, RT, psych nurse, social work therapist, mushroom press operator, teacher, consular officer, shelter case manager)? Give summary @ -No Was smoking cessation discussed for >3mins.? @ -No Was critical care preformed (if so, how long)? @ -No Were there social determinants of health that impacted care today? How? (Homelessness, low income, unemployed, alcoholism, drug addiction, transportation, low edu. Level, literacy, decrease access to med. care, [facility], rehab)? @ -No Was there de-escalation of care discussed even if they declined (Discuss DNR or withdrawal of care, Hospice)? @ -No What co-morbidities impacted this encounter? (DM, HTN, Smoking, COPD, CAD, Cancer, CVA, ARF, Chemo, Hep., AIDS, mental health diagnosis, sleep apnea, morbid obesity)? @ -None Was patient admitted / discharged? Hospital course, mention meds given and route, prescriptions, significant lab abnormalities, going to OR and other pertinent info. @ -Hospital course admission- Patient is a pleasant 33-year-old female past medical history recurrent UTIs presenting today for uncontrolled left flank pain, left lower quadrant abdominal pain difficulty urinating, recently diagnosed pyelonephritis. Fever, temp 101 at home. On my assessment patient is somewhat ill appearing but nontoxic. Exam significant for left CVA TTP and LLQ TTP. Given patient had CT scan done yesterday which showed no visible kidney stone but hydronephrosis, I do not feel risk of radiation exposure outweighs potential benefit at this point. Discussed with patient obtaining ultrasound of the pelvis to assess ovaries, and kidneys to assess for signs of hydronephrosis, in addition to KUB to assess for further evidence of kidney stone. Patient is agreeable plan of care. In addition we will give patient IV antibiotics, IV fluids, control, obtain comprehensive labs. Reviewed patient's labs, no leukocytosis, potassium 3.4 will order oral replacement otherwise labs unremarkable urinalysis is pending however earlier today patient did have UTI can urinalysis consistent with UTI, ultrasound showed no hydronephrosis in the retroperitoneum ultrasound pelvis showed no evidence of torsion or free fluid KUB showed no abnormal calcifications or other acute findings Continues to have 7 out of 10 pain. Given home antibiotics was attempted and patient has had worsening symptoms discussed with the patient admission for observation vs discharge home. Patient prefer staying for observation. Will admit for pyelonephritis. Ordered dose morphine for further pain control. Discussed with MONI Meyer, kindly accepts patient for admission. Undiagnosed new problem with uncertain prognosis? @ -No Drug Therapy requiring intensive monitoring for toxicity (Heparin, Nitro, Insulin, Cardizem)? @ -No Were any procedures done? @ -No Diagnosis/symptom? @Pyelonephritis Acute, or Chronic, or Acute on Chronic? @ -Acute Uncomplicated (without systemic symptoms) or Complicated (systemic symptoms)? @Plicated Side effects of treatment? @ -No Exacerbation, Progression, or Severe Exacerbation? @ -No Poses a threat to life or bodily function? How? (Chest pain, [place], [place], pneumonia, PE, COPD, DKA, ARF, appy, cholecystitis, CVA, Diverticulitis, Homicidal, Suicidal, threat to staff... and all critical care pts) @ -Potentially - Lab Data Result diagrams: 05/25/24 04:47 05/25/24 04:47 Lab Results 05/24/24 05/24/24 05/24/24 Range/Units 00:46 00:46 00:46 WBC 9.0 (3.8-10.6) k/uL RBC 4.48 (3.80-5.40) m/uL Hgb 13.3 (11.4-16.0) gm/dL Hct 40.3 (34.0-46.0) % MCV 89.9 (80.0-100.0) fL MCH 29.7 (25.0-35.0) pg MCHC 33.0 (31.0-37.0) g/dL RDW 13.0 (11.5-15.5) % Plt Count 249 (150-450) k/uL MPV 8.1 Neutrophils % 62 % Lymphocytes % 23 % Monocytes % 5 % Eosinophils % 7 % Basophils % 1 % Neutrophils # 5.6 (1.3-7.7) k/uL Lymphocytes # 2.1 (1.0-4.8) k/uL Monocytes # 0.4 (0-1.0) k/uL Eosinophils # 0.7 (0-0.7) k/uL Basophils # 0.1 (0-0.2) k/uL PT 11.3 (10.0-12.5) sec INR 1.0 (<1.2) APTT 26.9 (22.0-30.0) sec Sodium 139 (137-145) mmol/L Potassium 3.4 L (3.5-5.1) mmol/L Chloride 109 H (98-107) mmol/L Carbon Dioxide 27 (22-30) mmol/L Anion Gap 3 mmol/L BUN 8 (7-17) mg/dL Creatinine 0.83 (0.52-1.04) mg/dL Est GFR (CKD-EPI)AfAm >90 (>60 ml/min/1.73 sqM) Est GFR (CKD-EPI)NonAf >90 (>60 ml/min/1.73 sqM) Glucose 81 (74-99) mg/dL Plasma Lactic Acid Ramsey (0.7-2.0) mmol/L Calcium 8.3 L (8.4-10.2) mg/dL Total Bilirubin 0.6 (0.2-1.3) mg/dL AST 21 (14-36) U/L ALT 15 (4-34) U/L Alkaline Phosphatase 72 (38-126) U/L Total Protein 6.6 (6.3-8.2) g/dL Albumin 3.7 (3.5-5.0) g/dL Amylase 33 (30-110) U/L Lipase 67 (23-300) U/L 05/24/24 Range/Units 00:46 WBC (3.8-10.6) k/uL RBC (3.80-5.40) m/uL Hgb (11.4-16.0) gm/dL Hct (34.0-46.0) % MCV (80.0-100.0) fL MCH (25.0-35.0) pg MCHC (31.0-37.0) g/dL RDW (11.5-15.5) % Plt Count (150-450) k/uL MPV Neutrophils % % Lymphocytes % % Monocytes % % Eosinophils % % Basophils % % Neutrophils # (1.3-7.7) k/uL Lymphocytes # (1.0-4.8) k/uL Monocytes # (0-1.0) k/uL Eosinophils # (0-0.7) k/uL Basophils # (0-0.2) k/uL PT (10.0-12.5) sec INR (<1.2) APTT (22.0-30.0) sec Sodium (137-145) mmol/L Potassium (3.5-5.1) mmol/L Chloride (98-107) mmol/L Carbon Dioxide (22-30) mmol/L Anion Gap mmol/L BUN (7-17) mg/dL Creatinine (0.52-1.04) mg/dL Est GFR (CKD-EPI)AfAm (>60 ml/min/1.73 sqM) Est GFR (CKD-EPI)NonAf (>60 ml/min/1.73 sqM) Glucose (74-99) mg/dL Plasma Lactic Acid Ramsey 0.7 (0.7-2.0) mmol/L Calcium (8.4-10.2) mg/dL Total Bilirubin (0.2-1.3) mg/dL AST (14-36) U/L ALT (4-34) U/L Alkaline Phosphatase (38-126) U/L Total Protein (6.3-8.2) g/dL Albumin (3.5-5.0) g/dL Amylase (30-110) U/L Lipase (23-300) U/L Disposition Clinical Impression: Pyelonephritis Disposition: ADMITTED IP TO THIS [facility] Condition: Good
[2024-05-24 00:55] LABS: Basophils # (A) 0.1 k/uL (0-0.2); Basophils % (A) 1 %; Eosinophils # (A) 0.7 k/uL (0-0.7); Eosinophils % (A) 7 %; HCT 40.3 % (34.0-46.0); HGB 13.3 gm/dL (11.4-16.0); Lymphocytes # (A) 2.1 k/uL (1.0-4.8); Lymphocytes % (A) 23 %; MCH 29.7 pg (25.0-35.0); MCV 89.9 fL (80.0-100.0); Mean Platelet Volume 8.1; Monocytes # (A) 0.4 k/uL (0-1.0); Monocytes % (A) 5 %; Neutrophils # (A) 5.6 k/uL (1.3-7.7); Neutrophils % (A) 62 %; Platelet Count 249 k/uL (150-450); RBC 4.48 m/uL (3.80-5.40)
[2024-05-24] MEDS: SODIUM CHLORIDE 0.9% 1,000 ML IV STA (00:56)
[2024-05-24] MEDS: KETOROLAC 15 MG/ML 1 ML VIAL IVP STA (00:57)
[2024-05-24] MEDS: ONDANSETRON 4 MG/2 ML VIAL IVP STA ×2 (00:59→04:32)
[2024-05-24 01:16] LABS: Partial Thromboplastin Time 26.9 sec (22.0-30.0); Prothrombin Time 11.3 sec (10.0-12.5)
[2024-05-24 01:23] LABS: ALT 15 U/L (4-34); AST 21 U/L (14-36); African American GFR (CKD) >90 (>60 ml/min/1.73 sqM); Albumin 3.7 g/dL (3.5-5.0); Alkaline Phosphatase 72 U/L (38-126); Amylase 33 U/L (30-110); Anion Gap 3 mmol/L; Blood Urea Nitrogen 8 mg/dL (7-17); Calcium 8.3 mg/dL (8.4-10.2); Carbon Dioxide 27 mmol/L (22-30); Chloride 109 mmol/L (98-107); Glucose 81 mg/dL (74-99); Lipase 67 U/L (23-300); Non-African American GFR(CKD) >90 (>60 ml/min/1.73 sqM); Potassium 3.4 mmol/L (3.5-5.1); Sodium 139 mmol/L (137-145); Total Bilirubin 0.6 mg/dL (0.2-1.3); Total Protein 6.6 g/dL (6.3-8.2)
--- NOTE | 2024-05-24 02:10 | US ---
EXAM: US Retroperitoneal Limited, Renal CLINICAL HISTORY: US Reason: L. Flank pain TECHNIQUE: Real-time limited ultrasound of the retroperitoneum with image documentation. COMPARISON: No relevant prior studies available. FINDINGS: Right kidney: Unremarkable. No stones. No hydronephrosis. The right kidney measures 9.9 x 3.9 x 4.8 cm, 96 mL. Left kidney: Unremarkable. No stones. No hydronephrosis. The left kidney measures 11.6 x 4.6 x 5.2 cm, 146 mL. Bladder: The urinary bladder is partially distended but unremarkable. Ureteral jets are not visible. IMPRESSION: No acute findings in the retroperitoneum.
--- NOTE | 2024-05-24 02:12 | US ---
EXAM: US Pelvis Transabdominal, Complete CLINICAL HISTORY: US Reason: LLQ pain, torsion?, has had hysterectomy TECHNIQUE: Real-time complete transabdominal pelvic ultrasound with image documentation. COMPARISON: No relevant prior studies available. FINDINGS: Uterus/cervix: The uterus is absent. Right ovary: The right ovary measures 3.8 x 2.2 x 2.1 cm, 8.8 mL with normal Doppler blood flow. There is a 2.2 x 1.9 x 2 cm slightly complex cyst or follicle within it. Left ovary: The left ovary measures 3.4 x 1.9 x 2.6 cm, 8.9 mL with normal Doppler blood flow. There is a 2.1 x 1.5 x 1.7 cm simple cyst or follicle within it. Free fluid: No free fluid is seen in the pelvis. Bladder: Unremarkable as visualized. Wall is normal thickness for degree of distention. IMPRESSION: Previous hysterectomy. No evidence of torsion. No free fluid is seen.
--- NOTE | 2024-05-24 02:13 | XR ---
EXAM: XR Abdomen, 1 View CLINICAL HISTORY: XR Reason: left hydronephrosis, flank pain, stone? TECHNIQUE: Frontal supine view of the abdomen/pelvis. COMPARISON: August 28, 2014 FINDINGS: Gastrointestinal tract: Small amount of gas throughout nondilated large and small bowel loops. Organs: Cholecystectomy clips in the right upper quadrant of the abdomen. Bones/joints: Unremarkable. No acute fracture. Other findings: No abnormal gas collections are seen. No abnormal calcifications are seen. IMPRESSION: No acute findings.
[2024-05-24] MEDS: MORPHINE SULFATE 4 MG/ML SYRINGE IVP STA (04:27)
[2024-05-24] MEDS: SODIUM CHLORIDE 0.9% 1,000 ML IV ONE (04:33)
[2024-05-24] MEDS: POTASSIUM BICARBONATE/CIT AC 20 MEQ TABLET.EFF PO ONE (04:47)
[2024-05-24] MEDS ORDERED: ACETAMINOPHEN TAB 325 MG TAB PO PRN (04:54)
[2024-05-24] MEDS ORDERED: NALOXONE 0.4 MG/ML 1 ML VIAL IV PRN (04:54)
[2024-05-24] MEDS ORDERED: ONDANSETRON 4 MG/2 ML VIAL IVP PRN (04:54)
[2024-05-24] MEDS ORDERED: MORPHINE SULFATE 4 MG/ML SYRINGE IV PRN (04:54)
[2024-05-24] MEDS: SODIUM CHLORIDE 0.9% 1,000 ML IV SCH (06:18)
[2024-05-24] MEDS ORDERED: ZOLPIDEM 5 MG TAB PO PRN (09:21)
[2024-05-24 09:36] LABS: Appearance,Urine Cloudy (Clear); Bacteria,Urine Rare /hpf; Bilirubin,Urine Negative (Negative); Blood,Urine Small (Negative); Color,Urine Yellow; Glucose,Urine (UA) Negative (Negative); Ketones,Urine Negative (Negative); Leukocyte Esterase,Urine Small (Negative); Mucus,Urine Many /hpf; Nitrite,Urine Negative (Negative); Protein,Urine Negative (Negative); RBC,Urine 7 /hpf (0-5); Squamous Epithelial Cell,Urine 4 /hpf (0-4); Urobilinogen,Urine <2.0 mg/dL (<2.0); WBC,Urine 25 /hpf (0-5)
[2024-05-24] MEDS: ENOXAPARIN 40 MG/0.4 ML SYRINGE SQ SCH (10:23)
[2024-05-24] MEDS: DULoxetine HCL 60 MG CAPSULE.DR PO SCH (10:28)
[2024-05-24] MEDS: buPROPion XL 150 MG TAB.ER.24H PO SCH (10:28)
[2024-05-24] MEDS: PANTOPRAZOLE 40 MG TABLET PO SCH (10:28)
[2024-05-24] MEDS: KETOROLAC 15 MG/ML 1 ML VIAL IVP PRN (12:39)
--- NOTE | 2024-05-24 14:19 | P.HPIM ---
History of Present Illness This is a pleasant 33 years old female who presents with signs symptoms of burning urination and increased urgency and constant urge to pee and to go. Also complaining from pelvic pain about 6/10. Her symptoms has been going on for a few days. She denies chest pain dyspnea or coughing. No abdominal pain or vomiting or diarrhea. No headache weakness numbness or tingling Patient denies signs symptoms of active suicidal or homicidal ideation. However patient states that she has depression on a treatment but currently controlled. Patient denies smoking alcohol or illicit drugs Patient on admission was afebrile. Rest of vitals look stable. However at home she reports temperature of 100.1. Labs reviewed she has unremarkable CBC, BMP, liver enzymes, INR. Urine analysis from 05/23 when she came to the emergency room and sent home on oral antibiotics was suspicious for acute urinary tract infection. Lipase is negative Renal ultrasound showing no acute findings Pelvic ultrasound showing previous hysterectomy KUB is negative for acute process Urine culture is pending Currently on ceftriaxone 2 g Review of Systems Review of systems CONSTITUTIONAL: No fever, no malaise, no fatigue. HEENT: No recent visual problems or hearing problems. Denied any sore throat. CARDIOVASCULAR: No orthopnea, PND, no palpitations, no syncope. PULMONARY: No shortness of breath, no cough, no hemoptysis. GASTROINTESTINAL: No diarrhea, no nausea, no vomiting, no abdominal pain. Normoactive bowel sounds. NEUROLOGICAL: No headaches, no weakness, no numbness. HEMATOLOGICAL: Denies any bleeding or petechiae. GENITOURINARY: As above. MUSCULOSKELETAL/RHEUMATOLOGICAL: Denies any joint pain, swelling, or any muscle pain. ENDOCRINE: Denies any polyuria or polydipsia. Past Medical History Past Medical History: Asthma, GERD/Reflux Additional Past Medical History / Comment(s): ruptured lt ear drum from being hit in head by ball/[place] lt ear, ibs, migraines, hiatal hernia,"fatty liver", multiple uti's History of Any Multi-Drug Resistant Organisms: None Reported Past Surgical History: Back Surgery, Bariatric Surgery, Cholecystectomy, Hysterectomy Additional Past Surgical History / Comment(s): GASTRECTOMY WITH SLEEVE, egd/colonoscopy, hysterectomy jun 2022, back surgery L4 L5 09/2022 Past Anesthesia/Blood Transfusion Reactions: Motion Sickness Past Psychological History: Anxiety, Bipolar, Depression Additional Psychological History / Comment(s): lives at home with spouse and 2 children ,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 - Past Family History Mother Additional Family Medical History / Comment(s): murmur, papitations, anxiety, depression Father Family Medical History: Fibromyalgia Additional Family Medical History / Comment(s): gout, depression, past drug use Medications and Allergies Home Medications Medication Instructions Recorded Confirmed Type Pantoprazole [Protonix] 40 mg PO DAILY 03/02/22 05/24/24 History Zolpidem [Ambien] 10 mg PO HS PRN 03/02/22 05/24/24 History DULoxetine HCL [Cymbalta] 60 mg PO DAILY 04/22/23 05/24/24 History Cefpodoxime Proxetil [Vantin] 200 mg PO DIRECTED 05/24/24 05/24/24 History FLUoxetine HCL [PROzac] 20 mg PO HS 05/24/24 05/24/24 History Fexofenadine HCl [Amber Allergy] 180 mg PO DAILY 05/24/24 05/24/24 History Semaglutide [Wegovy] 1.7 mg SQ FR 05/24/24 05/24/24 History buPROPion XL [Wellbutrin XL] 150 mg PO DAILY 05/24/24 05/24/24 History Allergies Allergy/AdvReac Type Severity Reaction Status Date / Time latex Allergy Rash/Hives Verified 05/24/24 08:40 Physical Exam Vitals: Vital Signs Temp Pulse Pulse Resp BP BP Pulse Ox 05/24/24 07:00 98.4 F 77 16 136/78 96 05/24/24 04:57 90 18 117/74 96 05/23/24 23:38 98.7 F 95 22 148/87 96 Intake and Output 05/23/24 05/24/24 05/24/24 22:59 06:59 14:59 Intake Total 240 Balance 240 Intake: Oral 240 Other: Voiding Method Toilet Toilet # Voids 1 Weight 95.254 kg -GENERAL: The patient is alert and oriented x3, not in any acute distress. Well developed, well nourished.. Obese HEENT: Pupils are round and equally reacting to light. EOMI. No scleral icterus. No conjunctival pallor. Normocephalic, atraumatic. No pharyngeal erythema. No thyromegaly. CARDIOVASCULAR: S1 and S2 present. No murmurs, rubs, or gallops. PULMONARY: Chest is clear to auscultation, no wheezing , no crackles. -ABDOMEN: Soft, nontender, nondistended, normoactive bowel sounds. No palpable organomegaly. Mild left inguinal tenderness with no rebound tenderness, left costovertebral angle tenderness MUSCULOSKELETAL: No joint swelling or deformity. EXTREMITIES: No cyanosis, clubbing, or pedal edema. NEUROLOGICAL: Gross neurological examination did not reveal any focal deficits. SKIN: No rashes. no petechiae. Results CBC & Chem 7: 05/24/24 00:46 05/24/24 00:46 Labs: Abnormal Lab Results - Last 24 Hours (Table) 05/24/24 05/24/24 Range/Units 00:46 09:13 Potassium 3.4 L (3.5-5.1) mmol/L Chloride 109 H (98-107) mmol/L Calcium 8.3 L (8.4-10.2) mg/dL Urine Appearance Cloudy H (Clear) Urine Blood Small H (Negative) Ur Leukocyte Esterase Small H (Negative) Urine RBC 7 H (0-5) /hpf Urine WBC 25 H (0-5) /hpf Urine Bacteria Rare H (None) /hpf Urine Mucus Many H (None) /hpf Thrombosis Risk Factor Assmnt - Choose All That Apply Any of the Below Risk Factors Present?: Yes Each Factor Represents 1 point: Obesity (BMI >25) Other Risk Factors: No Other congenital or acquired thrombophilia - If yes, enter type in comment: No Thrombosis Risk Factor Assessment Total Risk Factor Score: 1 Thrombosis Risk Factor Assessment Level: Low Risk Assessment and Plan Assessment: Acute urinary tract infection with left pyelonephritis Depression with no suicidal ideation, currently not active issue History of hysterectomy Obesity with BMI of 33.9 Plan: Continue with ceftriaxone Follow-up urine culture Monitor labs and vitals Renal ultrasound is reviewed Further recommendation based on the clinical course GI prophylaxis: Protonix DVT prophylaxis: Lovenox
[2024-05-24] MEDS: FLUoxetine HCL 20 MG CAP PO SCH (20:52)
[2024-05-25 08:41] LABS: Basophils # (A) 0.07 X 10*3/uL (0.00-0.10); Basophils % (A) 1.1 %; Eosinophils # (A) 0.61 X 10*3/uL (0.04-0.35); Eosinophils % (A) 9.3 %; HCT 33.7 % (37.2-46.3); HGB 11.2 g/dL (12.0-15.0); Lymphocytes # (A) 2.36 X 10*3/uL (0.90-5.00); Lymphocytes % (A) 35.9 %; MCHC 33.2 g/dL (32.0-37.0); MCV 90.3 FL (80.0-97.0); Mean Platelet Volume 11.6 FL (9.5-12.2); Monocytes # (A) 0.51 X 10*3/uL (0.20-1.00); Monocytes % (A) 7.8 %; NRBC Per 100 WBC 0 X 10*3/uL (0.00-0.01); Neutrophils # (A) 3.02 X 10*3/uL (1.80-7.70); Neutrophils % (A) 45.7 %; Platelet Count 216 X 10*3/uL (140-440); RBC 3.73 X 10*6/uL (4.10-5.20); RDW 12.9 % (11.5-14.5); WBC 6.58 X 10*3/uL (4.50-10.00)
[2024-05-25 09:02] VITALS: RESP 17
[2024-05-25] MEDS: NICOTINE 14MG/24HR PATCH TRANSDERM SCH (09:17)
[2024-05-25 09:27] LABS: Blood Urea Nitrogen 5.4 mg/dL (9.0-27.0); Calcium 7.9 mg/dL (8.7-10.3); Carbon Dioxide 24.6 mmol/L (21.6-31.8); Chloride 109 mmol/L (96-109); Glucose 94 mg/dL (70-110); Potassium 3.7 mmol/L (3.5-5.5); Sodium 143 mmol/L (135-145)
[2024-05-25] MEDS: PHENAZOPYRIDINE 100 MG TAB PO SCH (11:03)
[2024-05-25 15:01] VITALS: BP 147/90; PULSE 82; TEMP 99
--- NOTE | 2024-05-29 19:15 | P.DS ---
Providers Date of admission: 05/24/24 04:54 Attending physician: Kelechi Kaufman Primary care physician: Aviva Reyes Hospital Course: Final Diagnosis Acute urinary tract infection with left pyelonephritis Depression with no suicidal ideation, currently not active issue History of hysterectomy Obesity with BMI of 33.9 Discharge Disposition Patient is stable for discharge home. Recommending to continue oral antibiotics with oral ceftin for the next 5 days. Patient has been started on 3 days of pyridium for burning. Follow up with PCP Dr Aviva Reyes in 1 to 2 days. Hospital Course This is a pleasant 33 years old female who presents with signs symptoms of burni ng urination and increased urgency and constant urge to pee and to go. Also complaining from pelvic pain about 6/10. Her symptoms has been going on for a few days. She denies chest pain dyspnea or coughing. No abdominal pain or vomiting or diarrhea. No headache weakness numbness or tingling Patient denies signs symptoms of active suicidal or homicidal ideation. However patient states that she has depression on a treatment but currently controlled. Patient denies smoking alcohol or illicit drugs Patient on admission was afebrile. Rest of vitals look stable. However at home she reports temperature of 100.1. Labs reviewed she has unremarkable CBC, BMP, liver enzymes, INR. Urine analysis from 05/23 when she came to the emergency room and sent home on oral antibiotics was suspicious for acute urinary tract infection. Lipase is negative Renal ultrasound showing no acute findings Pelvic ultrasound showing previous hysterectomy KUB is negative for acute process Urine culture is pending Currently on ceftriaxone 2 g Urine culture was normal. Patient continues to have some right flank but overall improved. She has been afebrile. Recommending to continue oral antibiotics for short course on discharge. Continue with the pyridium Please see medication reconciliation for a list of current medications. Thank you for allowing us to participate in the care of this patient. The impression and plan of care has been dictated by Lisa Noble, Nurse Practitioner as directed. Dr. Saima MD I have performed a history and physical examination and medical decision making of this patient, discussed the same with the dictator, and agree with the dictators assessment and plan as written, documented as a scribe. Based on total visit time, I have performed more than 50% of this visit. Patient Condition at Discharge: Good Plan - Discharge Summary Discharge Rx Participant: No New Discharge Prescriptions: New cefUROXime axetiL [Ceftin] 500 mg PO BID 5 Days #10 tab Phenazopyridine [Pyridium] 100 mg PO TID #9 tab Naproxen [Naprosyn] 250 mg PO BID PRN 5 Days #10 tab PRN Reason: Moderate Pain (Scale 4 To 6) Continue Pantoprazole [Protonix] 40 mg PO DAILY DULoxetine HCL [Cymbalta] 60 mg PO DAILY FLUoxetine HCL [PROzac] 20 mg PO HS buPROPion XL [Wellbutrin XL] 150 mg PO DAILY Fexofenadine HCl [Amber Allergy] 180 mg PO DAILY Semaglutide [Wegovy] 1.7 mg SQ FR Zolpidem [Ambien] 10 mg PO HS PRN PRN Reason: sleep Discontinued Cefpodoxime Proxetil [Vantin] 200 mg PO DIRECTED Discharge Medication List Pantoprazole [Protonix] 40 mg PO DAILY 03/02/22 [History] Zolpidem [Ambien] 10 mg PO HS PRN 03/02/22 [History] DULoxetine HCL [Cymbalta] 60 mg PO DAILY 04/22/23 [History] FLUoxetine HCL [PROzac] 20 mg PO HS 05/24/24 [History] Fexofenadine HCl [Amber Allergy] 180 mg PO DAILY 05/24/24 [History] Semaglutide [Wegovy] 1.7 mg SQ FR 05/24/24 [History] buPROPion XL [Wellbutrin XL] 150 mg PO DAILY 05/24/24 [History] Naproxen [Naprosyn] 250 mg PO BID PRN 5 Days #10 tab 05/25/24 [Rx] Phenazopyridine [Pyridium] 100 mg PO TID #9 tab 05/25/24 [Rx] cefUROXime axetiL [Ceftin] 500 mg PO BID 5 Days #10 tab 05/25/24 [Rx] Follow up Appointment(s)/Referral(s): Yuly Cervantes NPC [Nurse Practitioner] - 1-2 Days Aviva Reyes MD [Primary Care Provider] - 1-2 days Patient Instructions/Handouts: Urinary Tract Infection in Women (DC) Discharge Disposition: HOME SELF-CARE
== END 2024-05-25 16:20 | disposition home or self-care (01) ==
LOC: EC 23:34 → 6NMEDSUR 05-24 04:54
PROVIDERS: ADMIT Hospitalist; ATTEND Hospitalist
DX: N10 Acute pyelonephritis (principal); N20.0 Calculus of kidney; R39.198 Other difficulties with micturition; F31.9 Bipolar disorder, unspecified; F41.9 Anxiety disorder, unspecified; F17.210 Nicotine dependence, cigarettes, uncomplicated; E66.9 Obesity, unspecified; Z68.33 Body mass index [BMI] 33.0-33.9, adult; Z79.84 Long term (current) use of oral hypoglycemic drugs; Z79.899 Other long term (current) drug therapy; Z87.440 Personal history of urinary (tract) infections; Z91.040 Latex allergy status; Z90.710 Acquired absence of both cervix and uterus; Z90.49 Acquired absence of other specified parts of digestive tract
CPT/HCPCS: 96376 ×3; 96361 ×2; 96366 ×2; 96372 ×2; 96365; 96375; 99285; 51798; 36415; 80053; 80048; 82150; 83605; 83690; 85025 ×2; 85610; 85730; 81001; 87086; 74018; 93975; 76856; 76770; G0378 ×2; S4990; J2270; J2405; J0696 ×3; J1650 ×2; J1885 ×2